=== PATIENT | male | born 1935 | race Caucasian/White ===

== ENCOUNTER → 2016-10-10 10:41 | Outpatient (CLI) | payer MEDICARE, BC ==
[2016-07-31 08:36] VITALS: BMI 26.9
[~2016-10-10 10:41] MED LIST: ATIVAN1 MG PO; BAYER CHEWABLE81 MG PO; CELEXA40 MG PO; CENTRUM SILVER1 TA2 PO; COREG 3.1253.125 MG PO; CRANBERRY TABLET PO; FISH OIL 1,2001 CA1 PO; GLUCOSAMINE HC500 MG PO; HYDROCODON-ACE1 EAC7 PO; HYDROCODONE-APA1 TAB PO; NAPROSYN500 MG PO; NORCO 10/325 TA1 TA1 PO; OMEPRAZOLE20 M1 PO; PLAVIX75 MG PO; PREDNISONE20 MG PO; PROBIOTIC1 EAC1 PO; ZANTAC150 MG PO
== END | disposition home or self-care (01) ==
LOC: D.MRI 10:41
DX: M25.561 Pain in right knee (principal)

== ENCOUNTER → 2017-04-29 10:26 | Outpatient (CLI) | payer MEDICARE, BC ==
[2016-07-31 08:36] VITALS: BMI 26.9
== END | disposition home or self-care (01) ==
LOC: D.MRI 10:26
DX: M54.5 Low back pain (principal)

== ENCOUNTER → 2017-08-31 05:17 | Day surgery (SDC) | payer MEDICARE, BC ==
[2017-08-28 11:13] LABS: BASOPHILS 0.2 % (0-2); EOSINOPHILS 0.8 % (0-7); HEMATOCRIT 42.9 % (42.0-54.0); HEMOGLOBIN 14.4 g/dL (13.5-17.5); IMMATURE GRANULOCYTES 0.3 % (0-5); LYMPHOCYTES 24.7 % (15-50); MCH 32.5 pg (26.0-34.0); MCHC 33.6 g/dL (31.0-37.0); MCV 96.8 fL (80.0-100.0); MEAN PLATELET VOLUME 10.5 fL (7.4-10.4); MONOCYTES 10.7 % (2-11); NEUTROPHILS 63.3 % (40-80); PLATELET COUNT 184 10x3/uL (130-400); RBC 4.43 10x6/uL (4.20-6.10); WBC 9.7 10x3/uL (4.8-10.8)
[2017-08-28 11:18] LABS: APTT 29.1 SECONDS (22.8-39.4); INR 1.01 (0.85-1.17); PROTIME 12.9 SECONDS (11.6-15.0)
[2017-08-28 11:23] LABS: ANION GAP 11.3 mmol/L (8-16); CALCIUM 9.4 mg/dL (8.5-10.1); CARBON DIOXIDE 28.4 mmol/L (21.0-32.0); CREATININE - SERUM 1.3 mg/dL (0.6-1.3); POTASSIUM - SERUM 4.7 mmol/L (3.5-5.1)
[~2017-08-31] VITALS: Ht 188 cm; Wt 95.3 kg
--- NOTE | ~2017-08-31 | OP ---
PATIENT NAME: SHERWIN PETERSON MEDICAL RECORD: [id number] :37 [facility] DATE: SURGEON: SHERWIN AGUILERA MD DATE OF OPERATION: 08/31/2017 SURGEON: Sherwin Aguilera MD PREOPERATIVE DIAGNOSIS: Left neck mass. POSTOPERATIVE DIAGNOSIS: Left neck mass. PROCEDURE PERFORMED: Excisional biopsy of left neck mass 3 x 3 x 3 cm. ANESTHESIA: General. COMPLICATIONS: None. 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 COMPLICATIONS: None. ESTIMATED BLOOD LOSS: Minimal. OPERATIVE COURSE: After consent was obtained, the patient was taken to the operating room and placed in supine position on the operating table. Next, general anesthesia was given via endotracheal intubation after a timeout was performed that confirmed the correct patient and procedure. The neck was prepped and draped in typical sterile fashion. Local anesthetic was injected. Skin incision made with a 15 blade scalpel. Self-retaining retractor was placed. Dissection continued through the subcutaneous tissue with electrocautery. The lipoma was grasped with a DeBakey, was circumferentially dissected with blunt right angle dissection. The mass once completely circumscribed was excised with electrocautery and sent for permanent pathology. The wound bed was irrigated and suctioned. Careful attention to hemostasis, which was obtained with electrocautery. The incision was closed with 3-0 Vicryl suture, Mastisol and Steri-Strips. At the end of the case, all needle and instrument counts were correct. No complications occurred. The patient was extubated and transferred to the PACU in stable condition. TRANSINT:[id number] Voice Confirmation ID: [id number] DOCUMENT ID: [id number] SHERWIN AGUILERA MD at 2109 CC: [id number] DICTATION DATE: 08/31/17 1035 DESIGN ENGINEER PRODUCTS: 08/31/17 1206 [id number] [place] [address]
[2017-08-31 07:46] VITALS: BP 132/67; Ht 188 cm; Wt 95.3 kg
== END | disposition home or self-care (01) ==
LOC: D.OPS 05:17 → D.PAN 09:00 → D.OPS 09:30
PROVIDERS: Anesthesiology
DX: D17.0 Benign lipomatous neoplasm of skin and subcutaneous tissue of head, face and neck (principal); Z01.812 Encounter for preprocedural laboratory examination

== ENCOUNTER → 2017-12-10 10:53 | Outpatient (CLI) | payer MEDICARE, BC ==
[2017-08-31 07:46] VITALS: BMI 27.0
== END | disposition home or self-care (01) ==
LOC: D.NM 10:53
DX: R93.8 Abnormal findings on diagnostic imaging of other specified body structures (principal)

== ENCOUNTER → 2018-04-13 14:58 | Outpatient (CLI) | payer MEDICARE, BC ==
[2017-08-31 07:46] VITALS: BMI 27.0
== END | disposition home or self-care (01) ==
LOC: D.CT 14:58
DX: K40.90 Unilateral inguinal hernia, without obstruction or gangrene, not specified as recurrent (principal)

== ENCOUNTER → 2018-04-30 21:18 | Outpatient (CLI) | payer MEDICARE, BC ==
[2017-08-31 07:46] VITALS: BMI 27.0
== END | disposition home or self-care (01) ==
LOC: D.MAMMO 09:00
DX: R92.8 Other abnormal and inconclusive findings on diagnostic imaging of breast (principal)

== ENCOUNTER 2018-06-02 07:27 | Day surgery (SDC) | payer MEDICARE, BC ==
[2018-06-01 09:35] LABS: BASOPHILS 0.1 % (0-2); EOSINOPHILS 1.3 % (0-7); HEMATOCRIT 39.6 % (42.0-54.0); LYMPHOCYTES 28.8 % (15-50); MCH 31.2 pg (26.0-34.0); MCHC 32.8 g/dL (31.0-37.0); MEAN PLATELET VOLUME 10.1 fL (7.4-10.4); MONOCYTES 11.3 % (2-11); NEUTROPHILS 58.5 % (40-80); PLATELET COUNT 158 10x3/uL (130-400); RBC 4.17 10x6/uL (4.20-6.10); RDW 14.7 % (11.5-14.5)
[2018-06-01 09:46] LABS: INR 1.05 (0.85-1.17); PROTIME 13.3 SECONDS (11.6-15.0)
[2018-06-01 09:47] LABS: ANION GAP 9.3 mmol/L (8-16); CALCIUM 8.6 mg/dL (8.5-10.1); CARBON DIOXIDE 28.4 mmol/L (21.0-32.0); CREATININE - SERUM 1.3 mg/dL (0.6-1.3); POTASSIUM - SERUM 4.7 mmol/L (3.5-5.1)
[~2018-06-02] VITALS: Ht 188 cm; Wt 91.6 kg
[~2018-06-02 07:27] MED LIST changes: +CLARITIN 10 MG10 MG PO; +PROBIOTIC BLEN1 EACH; +SINGULAIR10 MG PO; +VITAMIN E100 UNIT PO
[2018-06-02 07:50] VITALS: BP 150/69; Ht 188 cm; Wt 91.6 kg
[2018-06-02] MEDS ORDERED: FLOMAX0.4 MG PO (11:09)
[2018-06-02] MEDS ORDERED: HYDROCODON-ACE1 EAC7 PO (11:09)
[2018-06-02] MEDS ORDERED: FUROSEMIDE20 MG PO (11:10)
== END 2018-06-02 14:15 | disposition home or self-care (01) ==
LOC: D.OPS 07:27 → D.PAN 07:30 → D.OPS 09:30 → D.PAN 09:30 → D.OPS 14:15
PROVIDERS: Anesthesiology
DX: K40.90 Unilateral inguinal hernia, without obstruction or gangrene, not specified as recurrent (principal); Z01.812 Encounter for preprocedural laboratory examination

== ENCOUNTER → 2019-05-10 08:19 | Outpatient (CLI) | payer MEDICARE, BC ==
[2018-06-02 07:50] VITALS: BMI 26.0
[~2019-05-10 08:19] MED LIST changes: +FLOMAX0.4 MG PO; +FUROSEMIDE20 MG PO
--- NOTE | 2019-05-17 13:38 | EC ---
PATIENT:SHERWIN PETERSON DATE OF SERVICE: 05/10/19 SEX: M MEDICAL RECORD: [id number] DATE OF : 37 [facility]GE [facility] PATIENT: 83 ADMISSION DATE: 05/10/19 REFERRING PHYSICIAN: INTERPRETING PHYSICIAN: MASON HURTADO MD ECHOCARDIOGRAM REPORT ECHO CHARGES 4 ECHO COMPLETE Date: 05/10/19 CLINICAL DIAGNOSIS: MR H/O CAD/PVD ECHOCARDIOGRAPHIC MEASUREMENTS (adult normal given) AC root (d.<3.7cm) 3.2 cm LV Septum d (<1.2 cm> 1.4 cm Valve Excursion 2.0 cm LV Septum (systole) 2.0 cm Left Atria (s.<4.0cm> 5.2 cm LVPW d(<1.2cm) 1.2 cm RV (d.<2.3cm) 3.1 cm LVPW (sytole) 1.8 cm LV diastole(<5.6CM) 6.9 cm MV E-F(>70mm/sec) cm LV systole 5.0 cm LVOT Diameter 2.0 cm MV exc.(>10mm) cm Est.ejection fraction (50-75%) % DOPPLER: LVIT cm/sec A 51.0 cm/sec E 124 cm/sec LA cm/sec RVSP 45.0 mmHg LVOT 94.0 cm/sec AOP1/2T m/s Asc. Ao 181 cm/sec RVOT 37.0 cm/sec RA cm/sec PA 74.0 cm/sec AV Gradient Peak 13.2 mmHg AV Mean 7.3 mmHg AV Area 1.5 cm MV Gradient Peak 7.2 mmHg MV Mean 2.8 mmHg MV Area cm COMMENTS: OP - HC Podiatrist Assistant: 1 JOHANN WILEY Civil Engineering Drafter: 1 Dr. Hurtado TAPE# PACS Pericardial Effusion N DATE OF SERVICE: FINDINGS: 1. Left ventricular chamber size is moderately dilated. Left ventricular systolic function is preserved at 50%. 2. Left atrium is dilated at 5.2 cm. Right atrium and right ventricular chamber sizes are as well dilated giving 4-chamber dilatation. 3. Valvular structures have normal structure and motion. 4. Doppler interrogation reveals mild aortic insufficiency, moderate mitral regurgitation, mild tricuspid regurgitation, no other valvular insufficiency or ECHOCARDIOGRAM REPORT [id number] SHERWIN PETERSON stenosis. Pulmonary systolic pressure is estimated at 45 mmHg. 5. No evidence of pericardial effusion or left ventricular thrombus. TRANSINT:[id number] Voice Confirmation ID: [id number] DOCUMENT ID: [id number] MASON HURTADO MD at 1338 CC: [id number] DICTATION DATE: 05/10/19 1736 BOX TRUCK DRIVER: 05/10/19 2104 DEP CLI 05/10/19 [place] [id number] [place] [id number]
== END | disposition home or self-care (01) ==
LOC: D.HCCECHO 08:19 → D.HCCARDIO 09:00 → D.HCCECHO 09:00
PROVIDERS: ATTEND Internal Medicine Interventional Cardiology
DX: I34.0 Nonrheumatic mitral (valve) insufficiency (principal)

== ENCOUNTER 2019-10-16 09:31 | Emergency (ER) | payer MEDICARE, BC ==
[~2019-10-16] VITALS: Ht 188 cm; Wt 97.7 kg
--- NOTE | ~2019-10-16 | EC ---
PATIENT:SHERWIN PETERSON DATE OF SERVICE: 10/16/19 SEX: M MEDICAL RECORD: [id number] DATE OF : 37 LOCATION:[facility] AGE OF PATIENT: 83 ADMISSION DATE: 10/16/19 REFERRING PHYSICIAN: INTERPRETING PHYSICIAN: MASON HURTADO MD ECHOCARDIOGRAM REPORT ECHO CHARGES 4 ECHO COMPLETE Date: 10/16/19 CLINICAL DIAGNOSIS: CP/SOB ECHOCARDIOGRAPHIC MEASUREMENTS (adult normal given) AC root (d.<3.7cm) 3.5 cm LV Septum d (<1.2 cm> 1.6 cm Valve Excursion 1.8 cm LV Septum (systole) 2.1 cm Left Atria (s.<4.0cm> 4.5 cm LVPW d(<1.2cm) 1.4 cm RV (d.<2.3cm) 3.3 cm LVPW (sytole) 2.1 cm LV diastole(<5.6CM) 6.5 cm MV E-F(>70mm/sec) cm LV systole 4.7 cm LVOT Diameter 2.1 cm MV exc.(>10mm) cm Est.ejection fraction (50-75%) % DOPPLER: LVIT cm/sec A cm/sec E 147 cm/sec LA cm/sec RVSP 46.0 mmHg LVOT 67.0 cm/sec AOP1/2T m/s Asc. Ao 114 cm/sec RVOT 52.0 cm/sec RA cm/sec PA 83.0 cm/sec AV Gradient Peak 5.2 mmHg AV Mean 2.8 mmHg AV Area 2.5 cm MV Gradient Peak 9.1 mmHg MV Mean 3.2 mmHg MV Area cm COMMENTS: Small Engine Technician: 1 JOHANN FACKLER Tool Polishing Machine Operator: 1 Dr. Hurtado TAPE# PACS Pericardial Effusion N DATE OF SERVICE: 10/16/2019 FINDINGS: 1. Left ventricular chamber size is mildly dilated. Left ventricular systolic function is preserved at 50% to 55%. 2. Left atrium is enlarged at 4.5 cm. Right atrium and right ventricular chamber sizes are as well mildly dilated. 3. Valvular structures have normal structure and motion. 4. Doppler interrogation reveals moderate mitral regurgitation, no other valvular insufficiency or stenosis. Pulmonary systolic pressure estimated at 46 ECHOCARDIOGRAM REPORT [id number] SHERWIN PETERSON mmHg. 5. No evidence of pericardial effusion or left ventricular thrombus. TRANSINT:[id number] Voice Confirmation ID: [id number] DOCUMENT ID: [id number] MASON HURTADO MD CC: [id number] DICTATION DATE: 10/17/19 1341 EDGE GRINDER: 10/17/19 1423 DEP ER 10/16/19 [place] [id number] [place] [id number]
[2019-10-16 10:52] LABS: BASOPHILS 0.1 % (0-2); EOSINOPHILS 0.5 % (0-7); HEMATOCRIT 38.2 % (42.0-54.0); HEMOGLOBIN 12.4 g/dL (13.5-17.5); IMMATURE GRANULOCYTES 0.3 % (0-5); LYMPHOCYTES 19.4 % (15-50); MCH 31.1 pg (26.0-34.0); MCHC 32.5 g/dL (31.0-37.0); MCV 95.7 fL (80.0-100.0); MEAN PLATELET VOLUME 9.4 fL (7.4-10.4); MONOCYTES 13.3 % (2-11); NEUTROPHILS 66.4 % (40-80); RBC 3.99 10x6/uL (4.20-6.10); RDW 14.6 % (11.5-14.5); WBC 11.8 10x3/uL (4.8-10.8)
[2019-10-16 10:59] LABS: PLATELET COUNT 235 10x3/uL (130-400)
[2019-10-16 11:03] LABS: ANION GAP 8.5 mmol/L (8-16); CALCIUM 8.8 mg/dL (8.5-10.1); CARBON DIOXIDE 30.6 mmol/L (21.0-32.0); CREATININE - SERUM 1.2 mg/dL (0.6-1.3); POTASSIUM - SERUM 4.1 mmol/L (3.5-5.1)
[2019-10-16 11:15] LABS: ALBUMIN 2.9 g/dL (3.4-5.0); BILIRUBIN - TOTAL 0.51 mg/dL (0.2-1.3); PROTEIN - SERUM 7.4 g/dL (6.4-8.2)
[2019-10-16] MEDS ORDERED: KLOR-CON 1010 MEQ PO (11:48)
[2019-10-16] MEDS ORDERED: LASIX20 MG PO (12:03)
[2019-10-16] MEDS ORDERED: FLUTICASONE PRO16 GM NASAL (12:03)
[2019-10-16 12:16] VITALS: Ht 188 cm; Wt 97.7 kg
[2019-10-16 14:04] VITALS: BP 157/81
--- NOTE | 2019-10-17 11:54 | CN ---
PATIENT NAME:SHERWIN PETERSON MEDICAL RECORD: [id number] : 37 LOCATION:ER ADMIT DATE: ACCOUNT: [id number] CONSULTING PHYSICIAN: MASON RONDON MD REFERRING PHYSICIAN: VIN MA MD DATE OF CONSULTATION: 10/16/2019 CARDIOLOGY CONSULTATION DIAGNOSES: 1. Chest pain. 2. Shortness of breath. 3. Pulmonary edema. 4. Coronary artery disease. 5. Previous percutaneous transluminal coronary angioplasty stent. HISTORY OF PRESENT ILLNESS: This is a gentleman who presents with shortness of breath and chest discomfort. His chest x-ray is compatible with mild pulmonary edema. He was previously on Lasix in the past, however, has not been on Lasix for quite some time. As well, he has been having a chest pain under his left breast area. His EKG is with no changes. Troponin is normal. PHYSICAL EXAMINATION: CONSTITUTIONAL/GENERAL APPEARANCE: Well nourished, well developed, appears stated age. EYES: Lids and conjunctivae noninjected. No discharge. No pallor. ENT: Lips within normal limit. No cyanosis. No pallor. NECK: Carotid arteries, bilateral normal upstroke. No bruits. No thrills. No jugular venous pressure or distention. CERVICAL LYMPH NODES: Nontender. Nonenlarged. THYROID: Not enlarged. No nodules. CARDIOVASCULAR: Precordial exam, nondisplaced. No heaves or pericardial thrills. Rate and rhythm, regular. Heart sounds, normal S1, normal S2. No S3, no gallop, no rub. Systolic murmur, not heard. Diastolic murmur, not heard. RESPIRATORY: Respiratory effort, unlabored. Normal curvature. No thoracic deformity. No chest wall tenderness. Percussion, resonant. Auscultation, clear. No wheezes, no rales, no rhonchi. ABDOMEN: Soft, nondistended, nontender. No abdominal pain, no vomiting and normal appetite. MUSCULOSKELETAL: No joint tenderness, normal gait, normal tone. SKIN: Warm and dry. OVERALL IMPRESSION: Shortness of breath. He is being treated with reinstitution of his Lasix, which is good. We will get an echocardiogram before he leaves to get a current ejection fraction, previous ejection fraction was in the 50% range. Due to the chest pain, we will risk stratify with stress testing Cardiolite imaging as an outpatient. TRANSINT:[id number] Voice Confirmation ID: [id number] DOCUMENT ID: [id number] CONSULT REPORT [id number] SHERWIN PETERSON, MASON MENESES at 1154 CC: [id number] DICTATION DATE: 10/16/19 1218 SHIPFITTER APPRENTICE: 10/16/19 1610 DEP ER 10/16/19 [place] [id number] [place] [id number]
== END 2019-10-16 14:05 | disposition home or self-care (01) ==
LOC: D.ER 09:31
PROVIDERS: Family Medicine
DX: R09.81 Nasal congestion (principal); I50.9 Heart failure, unspecified; R05 Cough; Z86.73 Personal history of transient ischemic attack (TIA), and cerebral infarction without residual deficits; K21.9 Gastro-esophageal reflux disease without esophagitis

== ENCOUNTER → 2019-10-21 07:52 | Outpatient (CLI) | payer MEDICARE, BC ==
[2019-10-16 12:16] VITALS: BMI 27.6
--- NOTE | ~2019-10-21 | ST ---
PATIENT:SHERWIN PETERSON MEDICAL RECORD: [id number] SEX: M LOCATION:[facility] ORDER #: ADMISSION DATE: 10/21/19 AGE OF PATIENT: 83 REFERRING PHYSICIAN: INTERPRETING PHYSICIAN: MASON RONDON MD DATE OF SERVICE: 10/21/2019 INDICATION: Angina and coronary artery disease. PROCEDURE IN DETAIL: The patient was exercised on standard Lexiscan protocol with 33 mCi of sestamibi injected at peak stress, 11 mCi used previously for rest images. FINDINGS: Gated SPECT was not performed secondary to multiple premature beats. SPECT imaging Cardiolite was used as myocardial perfusion agent. There is a fixed perfusion defect inferiorly compatible with previous inferior myocardial infarction; however, there is reversibility anteriorly as well as laterally. This includes the basal, mid, apical anterior segments, apical lateral, mid lateral, basal lateral segments. The degree of reversibility is moderate. The amount of myocardial involved between the 2 defects is very large. OVERALL IMPRESSION: This is a high risk abnormal nuclear stress test. Reversible ischemia anteriorly and laterally with a fixed perfusion defect inferiorly compatible with multivessel hemodynamically significant coronary artery disease. TRANSINT:[id number] Voice Confirmation ID: [id number] DOCUMENT ID: [id number] MASON RONDON MD CC: STANLEY MALDONADO [id number] DICTATION DATE: 10/21/19 1437 PRODUCTION SUPERINTENDENT: 10/22/19 0754 [facility] CLI 10/21/19 [place] [id number] [place] [address]
[~2019-10-21 07:52] MED LIST changes: +FLUTICASONE PRO16 GM NASAL; +KLOR-CON 1010 MEQ PO; +LASIX20 MG PO
== END | disposition home or self-care (01) ==
LOC: D.HCCARDIO 07:52
PROVIDERS: ATTEND Internal Medicine Interventional Cardiology
DX: I25.10 Atherosclerotic heart disease of native coronary artery without angina pectoris (principal)

== ENCOUNTER 2019-10-28 09:54 | Outpatient (CLI) | payer MEDICARE, BC ==
[~2019-10-28] VITALS: Ht 188 cm; Wt 96.4 kg
--- NOTE | ~2019-10-28 | HEMODYNAMI ---
PATIENT:SHERWIN PETERSON MEDICAL RECORD: [id number] : 37 LOCATION:[facility] ADMISSION DATE: 10/28/19 Generatedon:10/28/201914:55 Patient name: SHERWIN PETERSON Patient #: [id number] SSN: [id number] : 1935 Date of study: 10/28/2019 Page: Of Hemodynamic Procedure Report Patient Data Patient Demographics Procedure consent was obtained First Name: SHERWIN Gender: Male Last Name: KRISTEN : 1935 [facility] Initial: H Age: 83 year(s) Patient #: [id number] Race: SSN: [id number] Additional ID: [id number] Contact details [address]: [address] [place] [address] [place] State: [place] City: [place] Zip code: [address] Admission Admission Data Admission Date: 10/28/2019 Admission Time: 9:54 Arrival Date: 10/28/2019 Arrival Time: 12:00 Admit Source: Other Insurance Payor: Medicare [facility] #: [id number] Height (in.): 73.62 BSA: 2.22 (m2) Height (cm.): 187 BMI: 27.45 (kg/m2) Weight (lbs.): 211.64 Weight (kg.): 96 Lab Results Lab Result Date: 10/28/2019 Lab Result Time: 0:00 Biochemistry Name Units Result Min Max BUN mg/dl 17 --(---*)-- 7 18 Creatinine mg/dl 1.2 --(---*)-- 0.6 1.3 eGFR ml/min 61.85146 *-(----)-- 90 120 NONAFRICAN CBC Name Units Result Min Max Hemoglobin g/dl 13.7 --(*---)-- 13.5 17.5 Procedure Procedure Types Cath Procedure Diagnostic Procedure C [facility] w/Coronaries Sedation Charges Moderate Sedation up to 30 minutes PCI Procedure Coronary Stent Coronary Stent Initial x2 Hemochron ACT Test Procedure Description Procedure Date Procedure Date: 10/28/2019 Procedure Start Time: 14:20 Procedure End Time: 14:47 Procedure Staff Name Function Mango Hurtado MD Performing Physician Susy Brandt RT Monitor Gaetano James RT Scrub Mariann Donald RN Nurse Procedure Data Cath Procedure Fluoroscopy Diagnostic fluoroscopy Total fluoroscopy Time: 4.5 time: 4.5 min min Diagnostic fluoroscopy Total fluoroscopy dose: dose: 1045 mGy 1045 mGy Contrast Material Contrast Material Type Amount (ml) Isovue 300 112 Entry Location Entry Primary Successful Side Size Upsize Upsize Entry Closure Stein ccessful Closure Location (Fr) 1 (Fr) 2 (Fr) Remarks Device Remarks Radial Right 6 Fr Mechanical artery Short Compression Estimated blood loss: 5 ml Diagnostic catheters Device Type Used For End Catheter Placement DIAGNOSTIC [place] 110cm 5 Multi-vessel Fr catheter ([id number]) Angiography Procedure Complications No complications Procedure Medications Medication Administration Route Dosage Oxygen etCO2 Nasal cannula 2 l/min Heparin Flush Bag added to field 2 bags (1000units/500ml NS) Lidocaine 2% added to field 20 0.9% NaCl I.V. 100 ml/hr Radial Cocktail added to field 1 syringe (Verapamil 2mg/Nitro 400mcg/Heparin 1500units) Fentanyl I.V. 50 mcg Versed I.V. 1 mg Fentanyl I.V. 50 mcg Versed I.V. 1 mg Versed I.V. 1 mg Heparin Bolus I.V. 4000 units Integrilin (Bolus I.V. 8.5 ml 2mg/ml) Versed I.V. 0.5 mg Versed I.V. 0.5 mg Plavix P.O. 600 mg Hemodynamics Rest BSA: 2.22 (m2) HGB: 13.7 (g/dl) O2 Consumption: Estimated: 255.96 (ml/min) O2 Co nsumption indexed: Estimated:115.3 (ml/min/m) Heart Rate: 74 (bpm) Snapshots Pre Cath Intra NCS Post Cath Vital Signs Time Heart Resp SPO2 etCO2 NIBP (mmHg) Rhythm Pain Sedation Rate (ipm) (%) (mmHg) Status Level (bpm) 14:07:49 72 20 96 0 141/81(119) NSR 0 (11) 10(A) , No pain 14:12:09 72 11 97 33.5 132/75(103) NSR 0 (11) 10(A) , No pain 14:16:23 71 15 95 0 119/67(91) NSR 0 (11) 10(A) , No pain 14:20:31 74 14 97 34.2 112/69(91) NSR 0 (11) 10(A) , No pain 14:24:39 79 17 91 34.2 104/61(82) NSR 0 (11) 10(A) , No pain 14:28:44 78 17 93 15.2 108/58(81) NSR 0 (11) 10(A) , No pain 14:32:50 81 18 94 31.9 112/62(91) NSR 0 (11) 10(A) , No pain 14:36:56 84 17 93 32.7 120/69(103) NSR 0 (11) 10(A) , No pain 14:41:04 78 17 30.4 132/71(105) NSR 0 (11) 10(A) , No pain 14:45:15 83 19 33.4 131/71(108) NSR 0 (11) 10(A) , No pain Medications Time Medication Route Dose Verified Delivered Reason Not es Effectiveness by by 14:07:06 Oxygen etCO2 2 l/min Mariann Mariann for low 02 sats Nasal Donald Donald cannula RN RN 14:07:15 Heparin Flush added 2 bags Mariann Mariann used for Bag to Donald Donald procedure (1000units/500ml RN RN NS) 14:07:24 Lidocaine 2% added 20ml Mariann Mango for local to vial Shabana Hurtado MD anesthetic field ESTEVES 14:07:34 0.9% NaCl I.V. 100 Marainn Mariann Per physician ml/hr Shabana Donald RN RN 14:07:41 Radial Cocktail added 1 Mariann Mariann used for (Verapamil to syringe Donald Donald procedure 2mg/Nitro RN RN 400mcg/Heparin 1500units) 14:16:31 Fentanyl I.V. 50 mcg Mariann Mariann for sedation Donaldfroylan Donald RN RN 14:16:37 Versed I.V. 1 mg Mariann Mariann for sedation Donaldfroylan Donald RN RN 14:20:05 Fentanyl I.V. 50 mcg Mariann Mariann for sedation Shabana Donald RN RN 14:20:09 Versed I.V. 1 mg Mariann Mariann for sedation Shabana Donald RN RN 14:23:37 Versed I.V. 1 mg Mariann Mariann for sedation Shabana Donald RN RN 14:27:19 Heparin Bolus I.V. 4000 Mariann Mariann for alivia ified units Donald Donald anticoagulation w RN RN angela,rn 14:28:25 Integrilin I.V. 8.5 ml Mariann Mariann for 1.5 ml (Bolus 2mg/ml) Donald Donald anticoagulation wasted RN RN 14:28:42 Versed I.V. 0.5 mg Mariann Mariann for sedation Donald Shabana RN RN 14:32:41 Versed I.V. 0.5 mg Mariann Mariann for sedation Shabana Donald RN RN 14:35:30 Plavix P.O. 600 mg Mariann Mariann for Donald Donald antiplatelet RN RN therapy Procedure Log Time Note 13:48:24 Gaetano CONLYE(R) (CV) sent for patient. Start room use. 13:52:16 Informed consent obtained and on chart 13:56:31 Admit Source: Other 13:56:35 Arrival Date: 10/28/2019 12:00:00 PM 13:56:58 Insurance Payor : Medicare 13:57:07 Patient Height : 73.62 inches 13:57:10 Patient Weight : 211.64 lbs 13:57:52 Lab Result : BUN 17 mg/dl 13:57:52 Lab Result : Creatinine 1.2 mg/dl 13:57:52 Lab Result : eGFR NONAFRICAN 61.78846 ml/min 13:57:52 Lab Result : Hemoglobin 13.7 g/dl 13:57:56 Diagnostic Cath Status : Elective 13:58:22 Procedure Status Elective Heart Cath (OP). 13:58:26 Time tracking: Regular hours (M-F 7:00 - 5:00) 13:58:30 Plan of Care:Hemodynamics will remain stable., Cardiac rhythm will remain stable., Comfort level will be maintained., Respiratory function will remain adequate., Patient/ family verbilizes understanding of procedure., Procedure tolerated without complication., Recovers from procedure without complications.. 13:58:47 Patient received from Pre/Post Procedure Room to [facility] 2 Alert and oriented. Tansferred to table in Supine position. 13:58:48 Warm blankets applied, and pawan hugger turned on for patient comfort. 13:58:48 Correct patient and procedure confirmed by team. 13:58:49 ECG and BP/O2 sat monitors applied to patient. 14:06:37 Baseline sample Acquired. 14:06:37 Vital chart was started 14:06:40 Rhythm: sinus rhythm 14:06:42 Full Disclosure recording started 14:06:46 H&P Date Dictated: 10/28/2019 Within 30 days and on chart., H&P Addendum completed by physician on day of procedure. (MUST COMPLETE FOR ALL OUTPATIENTS). 14:06:47 Pre-procedure instructions explained to patient. 14:06:47 Pre-op teaching completed and patient verbalized understanding. 14:06:49 Family in patients room. 14:06:50 Patient NPO since Midnight. 14:06:58 Is the patient allergic to Iodine/contrast media? No. 14:07:03 Was the patient premedicated? Yes 14:07:04 Is patient on blood thinner?No 14:07:05 Patient diabetic? No. 14:07:06 Oxygen 2 l/min etCO2 Nasal cannula was administered by Mariann Donald RN; for low 02 sats; Verbal order read back and verified. 14:07:07 Previous problem with sedation/anesthesia? No ? 14:07:09 Snore? No 14:07:10 Sleep apnea? No 14:07:11 Deviated septum? No 14:07:12 Opens mouth fully? Yes 14:07:12 Sticks out tongue? Yes 14:07:15 Heparin Flush Bag (1000units/500ml NS) 2 bags added to field was administered by Mariann Donald RN; used for procedure; Verbal order read back and verified. 14:07:15 Airway obstruction? Yes COPD 14:07:18 Dentures? No ? 14:07:21 Pre procedure: right dorsailis pedis pulse 2+ Normal; easily identifiable; not easily obliterated 14:07:23 Pre procedure: left dorsailis pedis pulse 2+ Normal; easily identifiable; not easily obliterated 14:07:24 Lidocaine 2% 20ml vial added to field was administered by Mango Hurtado MD; for local anesthetic; Verbal order read back and verified. 14:07:25 Patient pain scale 0/10 ?. 14:07:30 IV patent on arrival in left forearm with 0.9% NaCl at [facility]. 14:07:33 Lab results completed and on chart. 14:07:34 0.9% NaCl 100 ml/hr I.V. was administered by Mariann Donald RN; Per physician; Verbal order read back and verified. 14:07:41 Radial Cocktail (Verapamil 2mg/Nitro 400mcg/Heparin 1500units) 1 syringe added to field was administered by Mariann Donald RN; used for procedure; Verbal order read back and verified. 14:07:47 Stress Test: yes; abnormal ? 14:12:24 Risk of Mortality: 0.1 14:12:31 Risk of blood transfusion: 0.45 14:12:40 Risk of SIMONA: 1.5 14:12:45 Right Radial & Right Groin area was prepped with chlora-prep and draped in sterile fashion 14:12:46 Alarms reviewed by R. N. 14:12:46 Sharps counted by scrub and verified by R.N. 14:12:47 Physician arrived 14:12:48 --------ALL STOP TIME OUT------ 14:12:48 Final Timeout: patient, procedure, and site verified with staff and physician. All members of the team are in agreement. 14:12:50 Right Radial & Right Groin site verified by team. 14:12:54 Fire Safety Assessment: A--An alcohol-based skin anteseptic being used preoperatively., C--Open oxygen or nitrous oxide is being used., D--An ESU, laser, or fiber-optic light is being used. 14:12:57 Physical assessment completed. ASA score P 2 - A patient with mild systemic disease as per Mango Hurtado MD. 14:13:03 2) 60-89 Mildly reduced kidney function, and other findings (as for stage 1) point to kidney disease. 14:13:40 Maximum allowable contrast dose (3.7 X eGFR X 0.75)169 ml. 14:13:44 Sedation plan: IV Moderate Sedation Medication:Versed, Fentanyl 14:13:48 Use device set Radial Dx or PCI 14:13:49 ACIST Syringe (21048) opened to sterile field. 14:13:49 Medline Cath Pack ([id number]) opened to sterile field. 14:13:50 Bag Decanter () opened to sterile field. 14:13:50 ACIST Hand Control (42553) opened to sterile field. 14:13:50 ACIST Manifold (36040) opened to sterile field. 14:13:51 Tegaderm 4 x 4 (1626W) opened to sterile field. 14:13:54 SHEATH 6FR RAIN (4699333) opened to sterile field. 14:13:55 EMERALD Guide Wire (896-459) opened to sterile field. 14:14:01 Procedure started. 14:16:31 Fentanyl 50 mcg I.V. was administered by Mariann Donald RN; for sedation; Verbal order read back and verified. 14:16:37 Versed 1 mg I.V. was administered by Mariann Donald RN; for sedation; Verbal order read back and verified. 14:19:17 Zero performed for pressure channel P1 14:20:05 Fentanyl 50 mcg I.V. was administered by Mariann Donald RN; for sedation; Verbal order read back and verified. 14:20:09 Versed 1 mg I.V. was administered by Mariann Donald RN; for sedation; Verbal order read back and verified. 14:20:20 Local anesthetic to right radial artery with Lidocaine 2% by Mango Hurtado MD.INITIAL ACCESS ONLY 14:20:29 A 6 Fr Short sheath was inserted into the Right Radial artery 14:22:13 A DIAGNOSTIC [place] 110cm 5 Fr catheter ([id number]) was advanced over the wire and used for Multi-vessel Angiography. 14:23:17 LV hemodynamics recorded. 14:23:18 LV gram done using HOLDER 14:23:21 Injector settings: Ml/sec: 5, Volume: 15, 14:23:27 EF : 55 % 14:23:37 Versed 1 mg I.V. was administered by Mariann Donald RN; for sedation; Verbal order read back and verified. 14:23:39 LCA angiography performed. 14:23:41 Injector settings: Ml/sec: 3, Volume: 6, 14:24:22 RCA angiography performed. 14:24:27 Injector settings: Ml/sec: 3, Volume: 6, 14:24:42 Catheter removed. 14:24:44 ACCDominant side:Right 14:26:09 Proceeding to intervention. 14:26:35 GUIDE 6FR XB 3.5 catheter ([id number]) opened to sterile field. 14:26:36 INFLATOR Merit BasixCompak (HY7431) opened to sterile field. 14:27:16 CHOICE PT Extra Support 182cm wire ([id number]) opened to sterile field. 14:27:19 Heparin Bolus 4000 units I.V. was administered by Mariann Donald RN; for anticoagulation; verified w paolo miller Verbal order read back and verified. 14::26 6 Fr XB 3.5 guide catheter was inserted over the wire 14::32 CHOICEPT wire advanced. 14:27:41 Wire advanced across lesion. 14:28:25 Integrilin (Bolus 2mg/ml) 8.5 ml I.V. was administered by Mariann Donald RN; for anticoagulation; 1.5ml wasted Verbal order read back and verified. 14:28:42 Versed 0.5 mg I.V. was administered by Mariann Donald RN; for sedation; Verbal order read back and verified. 14:29:07 Pre PCI Site: [place] mCirc has 80% stenosis. 14:29:07 ACC Pre-intervention RENALDO Flow is 3. 14:29:20 Place stent Inflation Number: 1 A SAGAR RX 3.0 x 38 stent ([id number]) was prepped and advanced across the Mid CX 80. The stent was deployed at 15 LEYDI for 0:10 (min:sec) 0. 14:29:29 Post PCI Site: [place] mCirc has 0% stenosis. 14:29:29 Wire redirected to LAD. 14:30:37 Stent catheter was removed intact over wire. 14:31:28 Pre PCI Site: [place] mLAD has 80% stenosis. 14:31:29 Place stent Inflation Number: 1 A SAGAR RX 2.5 x 18 stent ([id number]) was prepped and advanced across the Mid LAD 80. The stent was deployed at 17 LEYDI for 0:10 (min:sec) 0. 14:32:10 Post PCI Site: [place] mLAD has 0% stenosis. 14:32:10 Stent catheter was removed intact over wire. 14:32:41 Pre PCI Site: [place] pLAD has 80% stenosis. 14:32:41 Versed 0.5 mg I.V. was administered by Mariann Donald RN; for sedation; Verbal order read back and verified. 14:32:42 Place stent Inflation Number: 1 A SAGAR RX 3.5 x 15 stent ([id number]) was prepped and advanced across the Prox LAD 80. The stent was deployed at 17 LEY[place] for 0:10 (min:sec) 0. 14:33:10 Stent catheter was removed intact over wire. 14:34:17 Wire removed. 14:34:18 Guide catheter removed. 14:34:21 ACC Post-intervention RENALDO Flow is 3. 14:34:38 Post PCI Site: [place] pLAD has 0% stenosis. 14:35:24 Sheath removed intact; hemostasis achieved with Mechanical Compression to the Right Radial artery. 14:35:27 Procedure ended.(Physican Out) 14:35:30 Plavix 600 mg P.O. was administered by Mariann Donald RN; for antiplatelet therapy; Verbal order read back and verified. 14:39:40 ZEPHYR REGULAR TR BAND (418478) opened to sterile field. 14:44:48 ACC Post-intervention RENALDO Flow is 3. 14:45:05 Fluoroscopy time 04.50 minutes. 14:45:09 Fluoroscopy dose: 1045 mGy 14:45:09 Flurop Dose total: 1045 14:45:15 Dose Area Product 72736 mGy/cm. 14:45:23 Contrast amount:Isovue 300 112ml. 14:45:28 Maximum allowable dose exceeded? No. 14:45:29 Sharps counted by scrub and verified by R.N. 14:45:32 [place] band inflated with 12cc of air. 14:45:35 Insertion/operative site no bleeding no hematoma. 14:45:40 Post right radial artery:stable 14:45:42 Post Procedure Pulses reassessed and unchanged 14:45:47 Post procedure rhythm: unchanged. 14:45:49 Estimated blood loss: 5 ml 14:45:52 Post procedure instruction explained to patient.Patient verbalizes understanding. 14:45:52 Patient needs reinforcement of post procedure teaching. 14:46:38 Procedure type changed to Cath procedure, Diagnostic procedure, LHC, LHC w/Coronaries, Sedation Charges, Moderate Sedation up to 30 minutes, PCI procedure, Coronary Stent, Coronary Stent Initial x2, Hemochron ACT Test 14:46:39 Procedure and supply charges have been captured, reviewed, submitted and are correct. 14:46:43 Procedure Complication : No complications 14:46:46 Vital chart was stopped 14:46:52 [facility] Findings: MVD- PCI performed (see procedure note) 14:46:54 Operative report dictated upon procedure completion. 14:46:54 See physician's report for complete and final results. 14:46:58 Report given to Pre/Post Procedure Room. 14:47:02 Procedure ended. 14:47:02 Full Disclosure recording stopped 14:47:11 ACC-PCI Only Patient was given prescriptions, or instructed by Mango Hurtado MD to start/continue the following medications upon discharge: Plavix 14:47:55 End room use (Document Last) 14:52:41 ACT drawn and resulted at 224 seconds. (normal therapeutic range 180-240 seconds). Intervention Summary Intervention Notes Time ActionType Lesion and Equipment Used Action# Pressure Duration Attributes 14:29:20 Place stent Mid CX SAGAR RX 3.0 x 1 15 00:10 38 stent ([id number]) 14:31:29 Place stent Mid LAD SAGAR RX 2.5 x 1 17 00:10 18 stent ([id number]) 14:32:42 Place stent Prox LAD SAGAR RX 3.5 x 1 17 00:10 15 stent ([id number]) Device Usage Item Name Manufacture Quantity Catalog Number Hospital Part Current M inimal Lot# / Charge Number Stock Stock Serial# Code ACIST Syringe Acist 1 13255 791935 914749 939180 2 0 (86819) Medical Systems Inc Medline Cath Medline 1 [id number] 684770 95404 091719 5 Pack ([id number]) Bag Decanter Microtek 1 2001S 374699 16227 679082 5 (2001S) Medical Inc. ACIST Hand Acist 1 36887 660919 336854 832892 5 Control Medical (54901) Systems Inc ACIST Manifold Acist 1 22639 737151 871755 011441 5 (53453) Medical Systems Inc Tegaderm 4 x 4 3M 1 1626W 263976 965590 553573 5 (1626W) SHEATH 6FR Cardinal 1 4588997 450642 4898729 066506 5 RAIN (3328158) API Healthcare Guide Cardinal 1 502-455 553648 366522 301984 5 Wire (407-096) Health DIAGNOSTIC Terumo 1 40-0616 023418 998840 055593 5 [place] 110cm 5 Fr catheter (232423) GUIDE 6FR XB Cardinal 1 90815809 948814 838778 138932 2 3.5 catheter Health (61845921) INFLATOR Merit Merit 1 LW4829 675419 071530 772830 1 5 [facility] (IC5613) CHOICE PT Thayer 1 [id number] 863139 308742 972857 5 Extra Support Scientific 182cm wire ([id number]) SAGAR RX 3.0 x Medtronic 1 [id number] 639257 1178104 603544 5 [id number] 38 stent ([id number]) SAGAR RX 2.5 x Medtronic 1 [id number] 765001 0752029 650454 5 [id number] 18 stent ([id number]) SAGAR RX 3.5 x Medtronic 1 [id number] 499526 8112132 849723 5 [id number] 15 stent ([id number]) ZEPHYR REGULAR Cardinal 1 193548 020253 5676705 782509 5 [facility] (654468) Signature Audit [place] Stage Time Signature Unsigned Intra-Procedure 10/28/2019 Susy Brandt 2:49:00 PM RT(R) Intra-Procedure 10/28/2019 Mango Hurtado 2:55:39 PM Signatures Performing Physician : Signature : Mango Hurtado MD Date : Time : Monitor : Susy Brandt RT Signature : Date : Time : Nurse : Mariann Donald RN Signature : Date : Time : [place] [address] [place] [address]
--- NOTE | ~2019-10-28 | OP ---
PATIENT NAME: SHERWIN PETERSON MEDICAL RECORD: [id number] :37 LOCATION:D.M2 D.5 ADMISSION DATE: SURGEON: MASON RONDON MD DATE OF OPERATION: 10/28/2019 PROCEDURES: 1. PTCA stent LAD. 2. PTCA stent left circumflex. 3. Left heart catheterization. 4. Selective coronary angiography. 5. Left ventriculogram. INDICATION: Angina, coronary artery disease, and abnormal nuclear stress test. PROCEDURE IN DETAIL: After informed consent was obtained and after a detailed description of the risks, benefits as well as alternative therapies, the patient elected to proceed with angiogram and angioplasty. The right radial area was prepped and draped in normal sterile fashion. Right radial artery was cannulated via modified Seldinger technique with placement of 6-Turkish sheath. All catheters exchanged through this sheath. FINDINGS: Left ventriculogram was performed in standard 30-degree HOLDER view, reveals good cardiac wall motion, ejection fraction estimated at 55%. SELECTIVE CORONARY ANGIOGRAPHY: 1. Left main is with no significant angiographic disease. 2. Left anterior descending has 80% stenosis times 2. This correlates perfusion defect on nuclear stress testing. 3. Left circumflex has a long area of 70% to 80% stenosis. This correlates with perfusion defect on nuclear stress test. 4. Right coronary has moderate irregularities, but no flow-limiting stenosis. PTCA STENT OF THE LEFT CIRCUMFLEX: The stent used was a 3.0 x 38 mm [place]. Result was 0% residual stenosis. PTCA STENT OF THE LEFT ANTERIOR DESCENDING: The stent used 3.5 x 15 and 2.5 x 18, both [place] stents. Result was 0% residual stenosis. OVERALL IMPRESSION: Successful PTCA stent of the LAD and circumflex, both going from 75% to 80% initial stenosis to 0% residual. TRANSINT:[id number] Voice Confirmation ID: [id number] DOCUMENT ID: [id number] MASON RONDON MD CC: [id number] DICTATION DATE: 10/28/19 1440 SURGERY SPECIALIST: 10/28/192017 [facility] [address] [place] [place] [id number]
--- NOTE | ~2019-10-28 | HP ---
PATIENT: SHERWIN PETERSON MEDICAL RECORD: [id number] ACCOUNT: [id number] LOCATION:[place] : 37 ADMISSION DATE: 10/28/19 PCP: STANLEY MALDONADO MD HISTORY AND PHYSICAL EXAMINATION DIAGNOSES: 1. Unstable angina. 2. Coronary artery disease. 3. Previous PTCA and stent. 4. Abnormal nuclear stress test. 5. Smoking. 6. Chronic obstructive pulmonary disease. 7. Gastroesophageal reflux disease. HISTORY OF PRESENT ILLNESS: Mr. Peterson has a history of coronary artery disease, previous PTCA and stent. He was doing well until just recently began having episodes of chest pain and chest discomfort compatible with angina. Last cardiac stent was in 2016. His stress test is high risk, abnormal. He continues to have chest discomfort. PHYSICAL EXAMINATION: CONSTITUTIONAL/GENERAL APPEARANCE: Well nourished, well developed, appears stated age. EYES: Lids and conjunctivae noninjected. No discharge. No pallor. ENT: Lips within normal limit. No cyanosis. No pallor. NECK: Carotid arteries, bilateral normal upstroke. No bruits. No thrills. No jugular venous pressure or distention. CERVICAL LYMPH NODES: Nontender. Nonenlarged. THYROID: Not enlarged. No nodules. CARDIOVASCULAR: Precordial exam, nondisplaced. No heaves or pericardial thrills. Rate and rhythm, regular. Heart sounds, normal S1, normal S2. No S3, no gallop, no rub. Systolic murmur, not heard. Diastolic murmur, not heard. RESPIRATORY: Respiratory effort, unlabored. Normal curvature. No thoracic deformity. No chest wall tenderness. Percussion, resonant. Auscultation, clear. No wheezes, no rales, no rhonchi. ABDOMEN: Soft, nondistended, nontender. No abdominal pain, no vomiting and normal appetite. MUSCULOSKELETAL: No joint tenderness, normal gait, normal tone. SKIN: Warm and dry. OVERALL IMPRESSION: Unstable angina. We will proceed with coronary angiography. Further care depends upon the findings of the angiography. TRANSINT:[id number] Voice Confirmation ID: [id number] DOCUMENT ID: [id number] HISTORY AND PHYSICAL [id number] SHERWIN PETERSON MASON RONDON MD CC: [id number] DICTATION DATE: 10/28/19923 PROFESSIONAL VOLLEYBALL PLAYER: 10/28/19 09 PRE [facility] [address] [facility] [place] [address]
--- NOTE | ~2019-10-28 | DS ---
PATIENT:SHERWIN PETERSON :37 MEDICAL RECORD: [id number] DISCHARGE SUMMARY ADMISSION DATE: 10/28/19 DISCHARGE DATE: 10/29/19 DISCHARGE DIAGNOSES: 1. Angina. 2. Coronary artery disease. 3. Percutaneous transluminal coronary angioplasty stent left anterior descending and circumflex this admission. 4. Hypertension. 5. Hyperlipidemia. HOSPITAL COURSE: Mr. Peterson presents with anginal symptomatology, found to have critical disease of the LAD and circumflex, underwent successful PTCA stent of both territories complicated only by a small wire perforation of the distal LAD. He was watched overnight. He had no complications from this. Discharged home with the addition of Plavix to his medical regimen. Follow up with [facility] in 1 month. TRANSINT:[id number] Voice Confirmation ID: [id number] DOCUMENT ID: [id number] MASON RONDON MD CC: [id number] DICTATION DATE: 10/29/19 1004 MANAGER ICU: 10/30/19 0320 DEP CLI 10/29/19 [place] [id number] [place] [id number]
[2019-10-28] MEDS ORDERED: BAYER CHEWABLE81 MG PO (11:00)
[2019-10-28] MEDS ORDERED: COMBIVENT RESPIM4 GM INH (11:02)
[2019-10-28] MEDS ORDERED: ALLER-CHLOR4 MG PO (11:02)
[2019-10-28 11:28] VITALS: BP 129/74; BMI 27.2
[2019-10-28 11:50] LABS: BASOPHILS 0.1 % (0-2); EOSINOPHILS 0.8 % (0-7); HEMOGLOBIN 13.7 g/dL (13.5-17.5); IMMATURE GRANULOCYTES 0.2 % (0-5); LYMPHOCYTES 22.6 % (15-50); MCH 31.9 pg (26.0-34.0); MCHC 33.4 g/dL (31.0-37.0); MCV 95.3 fL (80.0-100.0); MEAN PLATELET VOLUME 9.7 fL (7.4-10.4); MONOCYTES 9.5 % (2-11); NEUTROPHILS 66.8 % (40-80); PLATELET COUNT 273 10x3/uL (130-400); RDW 14.5 % (11.5-14.5); WBC 9.7 10x3/uL (4.8-10.8)
[2019-10-28 12:11] LABS: ANION GAP 12.4 mmol/L (8-16); CALCIUM 8.8 mg/dL (8.5-10.1); CARBON DIOXIDE 27.3 mmol/L (21.0-32.0); CHOL - HDL RATIO 4.2 ratio (2.3-4.9); CREATININE - SERUM 1.2 mg/dL (0.6-1.3); LDL-HDL RATIO 2.7 ratio (1.5-3.5); POTASSIUM - SERUM 4.7 mmol/L (3.5-5.1)
--- NOTE | 2019-10-28 15:05 | NUR ---
REC TO ROOM VIA STRETCHER FROM STUDENT LIFE COORDINATOR, MONITORING INITIATED. FAMILY AT BEDSIDE. R WRIST ZBAND CDI, RADIAL PULSE PALPABLE ABOVE AND BELOW BAND. NSR 69, BP 146/65, RR 15, SAT 97%.
--- NOTE | 2019-10-28 15:15 | NUR ---
DR RONDON IN TO SEE PT. BP 143/72, NSR 73. R WRIST INTACT W RADIAL PULSE PALPABLE ABOVE AND BELOW THE BAND. NO S/S BLEEDING OR HEMATOMA.
--- NOTE | 2019-10-28 15:30 | NUR ---
R WRIST CDI, PULSE PALPABLE, NO S/S BLEEDING OR HEMATOMA
--- NOTE | 2019-10-28 16:00 | NUR ---
R WRIST CDI, PULSE PALPABLE, NO S/S BLEEDING OR HEMATOMA. FAMILY AT BEDSIDE.
--- NOTE | 2019-10-28 16:30 | NUR ---
R WRIST INTACT, ZBAND IN PLACE, RADIAL PULSE PALPABLE, NO S/S BLEEDING OR HEMATOMA. NSR 77, BP 164/71, ST 95% RA. FAMILY AT BEDSIDE.
--- NOTE | 2019-10-28 17:03 | NUR ---
R WRIST CDI, NO S/S BLEEDING OR HEMATOMA. BP 138/64, NSR 75, SAT 94% RA, FAMILY AT BEDSIDE.
--- NOTE | 2019-10-28 17:30 | NUR ---
R WRIST NO S/S BLEEDING OR HEMATOMA. CALLED REPORT TO ERIC DIAZ NURSE ON PCU RECEIVING PT.
--- NOTE | 2019-10-28 17:50 | NUR ---
TRANSPORTED TO 2114 VIA STRETCHER FROM CATH RECOVERY. PT HAS ALL BELONGINGS. PT'S HAS DC INSTRUCTIONS W F/U APPT AND RX FOR PLAVIX.
--- NOTE | 2019-10-28 18:20 | NUR ---
NEW PATIENT ADMIT FROM MUSIC COORDINATOR VIA WC ACCOMP[ANIED BY HOSPITAL STAFF. PATIENT TRANSFERRED TO BED WITHOUT DIFFICULTY. PATIENT IS ALERT ORIENTED X 4. PATIENT IS STABLE AND VSS. PATIENT DENIES ANY NEEDS OR PAIN. VSS. RT RADIAL TR BAND IN PLACE. NO BLEEDING BRUISING OR HEMATOMA NOTED. WILL CONTINUE WITH PLAN OF CARE. SR UP X 2 BED IN LOW POSITION AND CALL LIGHT IN REACH.
[2019-10-28 18:23] VITALS: Ht 188 cm; Wt 96.4 kg
[2019-10-28 20:00] VITALS: BP 130/61
--- NOTE | 2019-10-28 21:56 | NUR ---
INITAIL ROUNDS COMPLETED AT 1914 HRS. PT DENIED ANY DISCOMFORT. ASSESSMENT COMPLETED AT 1954 HRS. VSS. SR PER CM HR 79. ALERT AND ORIENTED TO PERSON, PLACE AND TIME. KILLIAN. IV TO L WRIST SL. TR BAND TO R WRIST CLEAN,DRY AND INTACT. WRIST STABILIZER IN PLACE. 1/2 OF AIR REMOVED FROM TR BAND AT 1954 HRS. NO BLEEDING, SWELLING OR BRUISING NOTED. SAT WITH PT FOR SEVERAL MINUTES AND NO CHANGE NOTED. REMAINDER OF AIR REMOVED AT 2034 HRS. NO CHANGE IN STATUS NOTED. 2X2 AND OPSITE PLACED OVER INSERTION SITE. RECHECKED SITE AT 2129 HRS WITH NO CHANGE NOTED. SR UP X2, CALL LIGHT WITHIN REACH.
--- NOTE | 2019-10-28 23:32 | NUR ---
PT AWAKE; DENIES ANY DISCOMFORT. SR PER CM HR 79. NO CHANGES TO R WRIST NOTED. PALPABLE R RADIAL PULSE. SR UP X2, CALL LIGHT WITHIN REACH.
[2019-10-29] VITALS: BP 142/65
--- NOTE | 2019-10-29 02:11 | NUR ---
PT RESTING WITH EYES CLOSED. RESP EVEN AND REGULAR. SR UP X2 CALL LIGHT WITHIN REACH.
[2019-10-29 04:00] VITALS: BP 142/72
--- NOTE | 2019-10-29 04:02 | NUR ---
NO CHANGES TO R WRIS NOTED. PT DENIES ANY DISCOMFORT. SR UP X2, CALL LIGHT WITHIN REACH.
--- NOTE | 2019-10-29 05:58 | NUR ---
VSS THROUGHOUT NIGHT. SR PER CM. PT DENIED ANY DISCOMFORT. R SRIST CLEAN,DRY AND INTACT WITHOUT ANY BRUISING OR SWELING. PALPABLE RADIAL PULSE. NEEDS MET; WILL CONTINUE TO MONITOR.
--- NOTE | 2019-10-29 07:15 | NUR ---
received pt IN BED EYES CLOSED RESP UNLABORED NAD NOTED
[2019-10-29 09:10] VITALS: BP 145/72
[2019-10-29] MEDS ORDERED: PLAVIX75 MG PO (11:05)
--- NOTE | 2019-10-29 11:05 | NUR ---
PT AND REPORT THAT DR RONDON GAVE A WRITTEN RX FOR PLAVIX YESTERDAY AND SHE HAS ALREADY TAKEN TO PHARMACY.
--- NOTE | 2019-10-29 12:15 | NUR ---
REVIEWED DISCHARGE INSTRUCTIONS WITH PT STATES UNDERSTANDING COPY GIVEN DCD SALINE LOCK TO LT HAND WITH IV CATHETER INTACT SITE FREE OF REDNESS OR EDEMA PT DISCHARGED HOME LEFT UNIT VIA W/C IN STABLE CONDITION WITH ALLPERSONAL BELONGINGS
== END 2019-10-29 12:15 | disposition home or self-care (01) ==
LOC: D.CATH 09:54 → D.M2 18:04 → D.CATH 10-29 12:15
PROVIDERS: ATTEND Internal Medicine Interventional Cardiology
DX: I25.119 Atherosclerotic heart disease of native coronary artery with unspecified angina pectoris (principal); R94.30 Abnormal result of cardiovascular function study, unspecified; J44.9 Chronic obstructive pulmonary disease, unspecified; K21.9 Gastro-esophageal reflux disease without esophagitis; Z72.0 Tobacco use
CPT/HCPCS: 93458; C9600 ×2

== ENCOUNTER 2019-12-06 12:03 | Inpatient (IN) | payer MEDICARE, BC ==
[~2019-12-06] VITALS: Ht 188 cm; Wt 90.6 kg
[~2019-12-06 12:03] MED LIST changes: +ALLER-CHLOR4 MG PO; +COMBIVENT RESPIM4 GM INH
--- NOTE | 2019-12-06 13:08 | NUR ---
RECIVED FROM DR OFFICE TO ROOM 2109 PER WC. ADMIT ASSESSMENT PER RN
[2019-12-06 13:25] VITALS: BP 142/84
[2019-12-06] MEDS ORDERED: PROVENTIL/2.5 MG/3 M INH (13:42)
[2019-12-06] MEDS ORDERED: CLARITIN 10 MG10 MG PO (13:45)
[2019-12-06] MEDS ORDERED: SINGULAIR10 MG PO (13:46)
[2019-12-06 14:17] VITALS: BP 142/84; BMI 27.6
[2019-12-06 14:32] LABS: BASOPHILS 0 % (0-2); EOSINOPHILS 0 % (0-7); HEMATOCRIT 35.8 % (42.0-54.0); HEMOGLOBIN 11.4 g/dL (13.5-17.5); IMMATURE GRANULOCYTES 0.5 % (0-5); LYMPHOCYTES 13.5 % (15-50); MCH 30.9 pg (26.0-34.0); MCHC 31.8 g/dL (31.0-37.0); MEAN PLATELET VOLUME 9.3 fL (7.4-10.4); MONOCYTES 8.7 % (2-11); NEUTROPHILS 77.3 % (40-80); PLATELET COUNT 309 10x3/uL (130-400); RBC 3.69 10x6/uL (4.20-6.10); RDW 14.8 % (11.5-14.5); WBC 15.1 10x3/uL (4.8-10.8)
[2019-12-06 14:55] LABS: ALBUMIN 2.7 g/dL (3.4-5.0); ALKALINE PHOSPHATASE 54 U/L (30-120); ALT (SGPT) 75 U/L (10-68); BILIRUBIN - TOTAL 0.35 mg/dL (0.2-1.3); CALC OSMOLALITY 272 mosm/kg (275-300); CALCIUM 8.3 mg/dL (8.5-10.1); CARBON DIOXIDE 28.9 mmol/L (21.0-32.0); CHLORIDE - SERUM 102 mmol/L (98-107); CREATINE KINASE 56 UL (21-232); CREATININE - SERUM 1.3 mg/dL (0.6-1.3); GLUCOSE 85 mg/dL (74-106); PHOSPHOROUS 3.3 mg/dL (2.5-4.9); POTASSIUM - SERUM 4.2 mmol/L (3.5-5.1); PRO BNP 8181 pg/mL (0-450); PROTEIN - SERUM 7.3 g/dL (6.4-8.2); SODIUM 135 mmol/L (136-145); THYROID STIMULATING HORMONE 1.37 uIU/mL (0.36-3.74); TROPONIN-I 0.053 ng/mL (0.000-0.060); UREA NITROGEN 23 mg/dL (7-18); eGFR NON AFRICAN AMERICAN 56 mL/min (90-120)
[2019-12-06 15:01] LABS: APTT 28.2 SECONDS (22.8-39.4); INR 1.15 (0.85-1.17); PROTIME 14.6 SECONDS (11.6-15.0)
[2019-12-06 15:02] LABS: D-DIMER-QUANTITATIVE 1.71 ug/mLFEU (0.20-0.54)
--- NOTE | 2019-12-06 19:30 | NUR ---
PT IN BED, EYES CLOSED, RESP EVEN AND UNLABORED, NO DISTRESS NOTED, CL IN REACH, SR UP X 2.
[2019-12-06 20:31] LABS: BILIRUBIN NEGATIVE (NEGATIVE); GLUCOSE NEGATIVE (NEGATIVE); KETONE NEGATIVE (NEGATIVE); NITRITE NEGATIVE (NEGATIVE); UROBILINOGEN NORMAL (NORMAL)
[2019-12-06 21:12] VITALS: BP 125/59
[2019-12-06 21:57] LABS: CKMB 3.9 U/L (0.0-3.6); CREATINE KINASE 59 UL (21-232); TROPONIN-I 0.056 ng/mL (0.000-0.060)
[2019-12-07] VITALS: BP 129/70
--- NOTE | 2019-12-07 00:05 | NUR ---
REPORT RECEIVED FROM KALEB AND THIS SUPERVISOR BODY ASSEMBLY IS NOW CARING FOR THIS PT. PT IS LYING IN BED AWAKE, ALERT AND ORIENTED X4. RESP IRREG, SOB WITH EXERTION. O2 @ 2L/NC. REPORTS NONPROD COUGH. TELEMETRY APPLIED AND SHOWS SR WITH RATE OF 75. DENIES PAIN. AMBULATORY. TRACE EDEMA NOTED TO BLE WITH WRINKLING NOTED. SALINE LOCK NOTED TO LT FOREARM. NO DISTRESS. DENIES NEEDS. SR ELEVATED X2. CL IN REACH.
--- NOTE | 2019-12-07 02:21 | NUR ---
CHROMIUM PLATER IN ROOM FOR BLOOD DRAW. SOLUMEDROL GIVEN PER ORDER AT THIS TIME. PT STATES HE HASNT SLEPT ALL NIGHT. EDUCATED ON SIDE EFFECTS OF STEROIDS AND HE VERBALIZED UNDERSTANDING. NO DISTRESS. VERY TALKATIVE. CL IN REACH.
[2019-12-07 03:47] LABS: BASOPHILS 0.1 % (0-2); EOSINOPHILS 0 % (0-7); HEMATOCRIT 37.6 % (42.0-54.0); HEMOGLOBIN 11.8 g/dL (13.5-17.5); IMMATURE GRANULOCYTES 0.8 % (0-5); LYMPHOCYTES 13.5 % (15-50); MCH 30.4 pg (26.0-34.0); MCHC 31.4 g/dL (31.0-37.0); MCV 96.9 fL (80.0-100.0); MEAN PLATELET VOLUME 9.5 fL (7.4-10.4); MONOCYTES 7.9 % (2-11); NEUTROPHILS 77.7 % (40-80); PLATELET COUNT 352 10x3/uL (130-400); RBC 3.88 10x6/uL (4.20-6.10); RDW 14.8 % (11.5-14.5); WBC 13.4 10x3/uL (4.8-10.8)
[2019-12-07 04:07] LABS: CALC OSMOLALITY 270 mosm/kg (275-300); CALCIUM 7.9 mg/dL (8.5-10.1); CARBON DIOXIDE 29.6 mmol/L (21.0-32.0); CHLORIDE - SERUM 99 mmol/L (98-107); CKMB 3.4 U/L (0.0-3.6); CREATINE KINASE 55 UL (21-232); CREATININE - SERUM 1.3 mg/dL (0.6-1.3); GLUCOSE 109 mg/dL (74-106); POTASSIUM - SERUM 4.2 mmol/L (3.5-5.1); SODIUM 133 mmol/L (136-145); TROPONIN-I 0.049 ng/mL (0.000-0.060); UREA NITROGEN 25 mg/dL (7-18); eGFR NON AFRICAN AMERICAN 56 mL/min (90-120)
--- NOTE | 2019-12-07 04:46 | NUR ---
LYING ON LT SIDE IN BED WITH EYES CLOSED. RESP NONLABORED. NO DISTRESS. CL IN REACH.
[2019-12-07 05:17] VITALS: BP 123/73
[2019-12-07 08:03] VITALS: BP 141/75
[2019-12-07 10:20] VITALS: Ht 188 cm; Wt 90.6 kg
--- NOTE | 2019-12-07 10:57 | NUR ---
I have reviewed this patient and I concur with the Shift Assessment completed by the Licensed Practical Nurse today this shift.
[2019-12-07 11:35] VITALS: BP 123/62
[2019-12-07 12:35] LABS: % SATURATION 24 % (15-55); IRON 54 ug/dl (35-150); TOTAL IRON BIND CAPACITY 225 ug/dl (260-445); UNSAT IRON BIND CAPACITY 171 ug/dl (150-375)
[2019-12-07 13:05] LABS: FERRITIN 81 ng/mL (3-244)
[2019-12-07 14:57] VITALS: BP 118/53
--- NOTE | 2019-12-07 17:33 | NUR ---
LEFT FA 22G IV INFITRATED. INSERTED 20G IV IN RIGHT WRIST.
--- NOTE | 2019-12-07 19:43 | NUR ---
RECEIVED BEDSIDE REPORT. PATIENT IS ALERT AND ORIENTED, RESTING COMFORTABLY IN BED. RESPIRATIONS ARE EVEN AND UNLABORED. NO S/S OF DISTRESS. NO C/O PAIN. CALL IGHT WITHIN REACH. WILL CPOC.
[2019-12-07 20:00] VITALS: BP 125/61
[2019-12-08 00:30] VITALS: BP 118/58
[2019-12-08 04:30] VITALS: BP 138/76
[2019-12-08 05:34] LABS: BASOPHILS 0 % (0-2); EOSINOPHILS 0 % (0-7); HEMATOCRIT 36.8 % (42.0-54.0); HEMOGLOBIN 11.9 g/dL (13.5-17.5); IMMATURE GRANULOCYTES 0.8 % (0-5); LYMPHOCYTES 10.8 % (15-50); MCH 30.7 pg (26.0-34.0); MCHC 32.3 g/dL (31.0-37.0); MCV 95.1 fL (80.0-100.0); MEAN PLATELET VOLUME 9.3 fL (7.4-10.4); MONOCYTES 9.3 % (2-11); NEUTROPHILS 79.1 % (40-80); PLATELET COUNT 330 10x3/uL (130-400); RBC 3.87 10x6/uL (4.20-6.10); RDW 14.7 % (11.5-14.5); WBC 13.9 10x3/uL (4.8-10.8)
[2019-12-08 06:02] LABS: ANION GAP 10.1 mmol/L (8-16); CREATININE - SERUM 1.4 mg/dL (0.6-1.3); MAGNESIUM - SERUM 2.1 mg/dL (1.8-2.4); POTASSIUM - SERUM 4.1 mmol/L (3.5-5.1)
--- NOTE | 2019-12-08 07:21 | NUR ---
PT SITTING UP IN BED, RR EVEN AND UNLABORED. DENIES NEEDS OR PAIN AT THIS TIME. CALL LIGHT WITHIN REACH. BED IN LOWEST POSITION. WILL CONTINUE TO MONITOR.
[2019-12-08 08:50] VITALS: BP 138/75
--- NOTE | 2019-12-08 10:30 | NUR ---
I have reviewed this patient and I concur with the Shift Assessment completed by the Licensed Practical Nurse today this shift.
[2019-12-08 14:11] VITALS: BP 130/63
[2019-12-08 18:05] VITALS: BP 128/64
--- NOTE | 2019-12-08 19:30 | NUR ---
PT IN BED, AAO X 3, RESP EVEN AND UNLABORED, NO DISTRESS NOTED, CL IN REACH, SR UP X 2.
[2019-12-08 20:00] VITALS: BP 131/64
[2019-12-09] VITALS: BP 131/65
[2019-12-09 03:06] LABS: IMMUNOGLOBULIN E 882 IU/mL (6-495)
[2019-12-09 04:00] VITALS: BP 132/66
[2019-12-09 05:06] LABS: BASOPHILS 0.1 % (0-2); EOSINOPHILS 0.1 % (0-7); HEMOGLOBIN 12.7 g/dL (13.5-17.5); LYMPHOCYTES 13.2 % (15-50); MCH 30.5 pg (26.0-34.0); MCHC 31.8 g/dL (31.0-37.0); MCV 96.2 fL (80.0-100.0); MEAN PLATELET VOLUME 9.2 fL (7.4-10.4); MONOCYTES 10.1 % (2-11); NEUTROPHILS 75.5 % (40-80); PLATELET COUNT 331 10x3/uL (130-400); RBC 4.16 10x6/uL (4.20-6.10); WBC 13.9 10x3/uL (4.8-10.8)
[2019-12-09 05:16] LABS: ANION GAP 11.3 mmol/L (8-16); CALCIUM 7.9 mg/dL (8.5-10.1); CARBON DIOXIDE 28.5 mmol/L (21.0-32.0); CREATININE - SERUM 1.5 mg/dL (0.6-1.3); MAGNESIUM - SERUM 2.1 mg/dL (1.8-2.4); POTASSIUM - SERUM 3.8 mmol/L (3.5-5.1)
--- NOTE | 2019-12-09 09:25 | MORECARE ---
CASE MANAGEMENT DISCHARGE SUMMARY PATIENT: SHERWIN PETERSON UNIT: [id number] ADM DATE: 12/06/19 AGE: 84 : 36 SEX: M ROOM/BED: D.2101 AUTHOR: DOROTHY,DOC PHYSICIAN: REFERRING PHYSICIAN: STANLEY HICKS MD DATE OF SERVICE: 12/09/19 Discharge Plan Patient Name: SHERWIN PETERSON Facility: [facility]:[place] : 1935 Planned Disposition: Home Anticipated Discharge Date: 12/09/19 Discharge Date: Expected LOS: 3 Initial Reviewer: [email or web address] Initial Review Date: 12/09/2019 Generated: 12/09/19 10:25 am Comments DCP- Discharge Planning Updated by [email or web address]: Kori Cerda on 12/09/19 8:[address] Patient Name: SHERWIN PETERSON Admission Status: Urgent Accout number: [id number] Admission Date: 12-06-2019 : 1935 Admission Diagnosis:SHORTNESS OF BREATH Attending: STANLEY HICKS Current LOS: 3 Anticipated DC Date: 12-09-2019 Planned Disposition: Home Primary Insurance: MEDICARE A & B DC Plan - Home with spouse/declines need for HHS Discharge Planning Comments: CM met with patient to complete initial dc planning assessment. CM educated patient on the CM role and verbal consent given by patient to complete assessment. Patient lives at home with spouse. At discharge patient plans to return and feels this is a safe discharge. CM discussed availability of home health, rehab services, and medical equipment. Patient denied known discharge needs at this time. CM will continue to follow and will assist as needed with dc plans/needs. Academic Support Specialist: Kori Cerda DCPIA - Discharge Planning Initial Assessment Updated by [email or web address]: Kori Cerda on 12/09/19 9:21 am * Is the patient Alert and Oriented? Yes * How many steps to enter\exit or inside your home? 1/0 * PCP Dr. Hicks * Pharmacy [facility] [address] * Preadmission Environment Home with Family * ADLs Independent * Equipment Cane Walker * List name and contact numbers for known caregivers / representatives who currently or will assist patient after discharge: Nevin - spouse - [phone] * Verbal permission to speak to the caregivers and representatives has been obtained from the patient. Yes * Community resources currently utilized None * Additional services required to return to the preadmission environment? No * Can the patient safely return to the preadmission environment? Yes * Has this patient been hospitalized within the prior 30 days at any hospital? No Coverage Notice Reviewer: [email or web address] Mone Sosay Prashant Notice Issued Date-Time: 12/09/2019 9:18 Notice Type: IM Discharge Notice Notice Delivered To: Patient Relationship to Patient: Self Cash Applications Representative Name: Delivery Method: HAND - Hand Delivered Ana Days: Prior Verbal Notification: Recipient Understood Notice: Yes Recipient Signature: Yes Med Rec Note Co-signed by Attending: Coverage Notice Comment: IMM explained, signed, given, copy placed in MR Patient Name: SHERWIN PETERSON Page [phone] at 0925 All edits/amendments must be made on the electronic document DICTATION DATE: 12/09/19924 ELECTRICAL INSTALLATION SUPERVISOR: MARLON 12/09/19924 RPT#: [id number] DC DATE: STATUS: ADM IN [facility] [address] [place] [address] END OF REPORT
[2019-12-09 10:56] VITALS: BP 127/65
[2019-12-09] MEDS ORDERED: LEVOFLOXACIN500 MG PO (12:14)
[2019-12-09] MEDS ORDERED: MUCINEX600 MG PO (12:14)
[2019-12-09] MEDS ORDERED: HCTZ25 MG PO (12:14)
[2019-12-09] MEDS ORDERED: TESSALON PERLE100 MG PO (12:14)
[2019-12-09] MEDS ORDERED: MEDROL DOSE PACK4 MG PO (12:19)
--- NOTE | 2019-12-09 13:06 | NUR ---
SMOKING CESSATION FOR [place] QUITLINE GIVEN TO PRIMARY NURSE TO BE FILLED OUT.
--- NOTE | 2019-12-09 13:58 | NUR ---
TELEMETRY DC'D. RIGHT WRIST 20G IV DC'D WITH CATH INTACT. PT STATES HE DOES NOT NEED THE TOBACCO QUITLINE AND DOES NOT NEED TO SIGN THE FORM. I VERBALIZED UNDERSTANDING. DISCHARGE INSTRUCTIONS GIVEN TO PT. PT HAS NO FURTHER QUESTIONS. CHART COPY SIGNED.
[2019-12-09 14:29] VITALS: BP 117/74
--- NOTE | 2019-12-09 15:00 | NUR ---
PT TAKEN OUT VIA WC THROUGH ER ENTRANCE WITH ALL BELONGINGS AND LEFT WITH FRIEND IN PERSONAL CAR.
--- NOTE | 2019-12-09 16:24 | MORECARE ---
CASE MANAGEMENT DISCHARGE SUMMARY PATIENT: SHERWIN PETERSON UNIT: [id number] ADM DATE: 12/06/19 AGE: 84 : 36 SEX: M ROOM/BED: D.2107 AUTHOR: DOROTHY,DOC PHYSICIAN: REFERRING PHYSICIAN: STANLEY HICKS MD DATE OF SERVICE: 12/09/19 Discharge Plan Patient Name: SHERWIN PETERSON Facility: [facility]:[place] : 1935 Planned Disposition: Home Anticipated Discharge Date: 12/09/19 Discharge Date: 12/09/2019 Expected LOS: 3 Initial Reviewer: [email or web address] Initial Review Date: 12/09/2019 Generated: 12/09/19 5:24 pm Comments DCP- Discharge Planning Updated by [email or web address]: Kori Cerda on 12/09/19 8:[address] Patient Name: SHERWIN PETERSON Admission Status: Urgent Accout number: [id number] Admission Date: 12-06-2019 : 1935 Admission Diagnosis:SHORTNESS OF BREATH Attending: STANLEY HICKS Current LOS: 3 Anticipated DC Date: 12-09-2019 Planned Disposition: Home Primary Insurance: MEDICARE A & B DC Plan - Home with spouse/declines need for HHS Discharge Planning Comments: CM met with patient to complete initial dc planning assessment. CM educated patient on the CM role and verbal consent given by patient to complete assessment. Patient lives at home with spouse. At discharge patient plans to return and feels this is a safe discharge. CM discussed availability of home health, rehab services, and medical equipment. Patient denied known discharge needs at this time. CM will continue to follow and will assist as needed with dc plans/needs. Geospatial Information Technologist: Kori Cerda DCPIA - Discharge Planning Initial Assessment Updated by [id number]: Kori Cerda on 12/09/19 9:21 am * Is the patient Alert and Oriented? Yes * How many steps to enter\exit or inside your home? 1/0 * PCP Dr. Hicks * Pharmacy [facility] on [address] * Preadmission Environment Home with Family * ADLs Independent * Equipment Cane Walker * List name and contact numbers for known caregivers / representatives who currently or will assist patient after discharge: Nevin - hikteb - [phone] * Verbal permission to speak to the caregivers and representatives has been obtained from the patient. Yes * Community resources currently utilized None * Additional services required to return to the preadmission environment? No * Can the patient safely return to the preadmission environment? Yes * Has this patient been hospitalized within the prior 30 days at any hospital? No Coverage Notice Reviewer: [email or web address] Mone Kori Prashant Notice Issued Date-Time: 12/09/2019 9:18 Notice Type: IM Discharge Notice Notice Delivered To: Patient Relationship to Patient: Self Head Of Sales Promotion Name: Delivery Method: HAND - Hand Delivered Ana Days: Prior Verbal Notification: Recipient Understood Notice: Yes Recipient Signature: Yes Med Rec Note Co-signed by Attending: Coverage Notice Comment: IMM explained, signed, given, copy placed in MR Last DP export: 12/09/19 8:25 a Patient Name: SHERWIN PETERSON Page [phone] at 1624 All edits/amendments must be made on the electronic document DICTATION DATE: 12/09/191623 AUTOMOBILE LOCATOR: MARLON 12/09/191623 RPT#: [id number] DC DATE:12/09/19 STATUS: DIS IN [facility] [address] [place] [address] END OF REPORT
--- NOTE | 2019-12-12 09:57 | EC ---
PATIENT:SHERWIN PETERSON DATE OF SERVICE: 12/06/19 SEX: M MEDICAL RECORD: [id number] DATE OF : [birth year] LOCATION:D.M2 D.210 AGE OF PATIENT: 84 ADMISSION DATE: 12/06/19 REFERRING PHYSICIAN: INTERPRETING PHYSICIAN: POPEYE CORNEJO MD ECHOCARDIOGRAM REPORT ECHO CHARGES 5 ECHO LIMITED Date: 12/07/19 CLINICAL DIAGNOSIS: CHF RECENT STENTS ECHOCARDIOGRAPHIC MEASUREMENTS (adult normal given) AC root (d.<3.7cm) 3.9 cm LV Septum d (<1.2 cm> 1.3 cm Valve Excursion 1.6 cm LV Septum (systole) 1.4 cm Left Atria (s.<4.0cm> 4.9 cm LVPW d(<1.2cm) 1.6 cm RV (d.<2.3cm) cm LVPW (sytole) 1.7 cm LV diastole(<5.6CM) 6.6 cm MV E-F(>70mm/sec) cm LV systole 5.2 cm LVOT Diameter cm MV exc.(>10mm) 1.4 cm Est.ejection fraction (50-75%) % DOPPLER: LVIT cm/sec A cm/sec E cm/sec LA cm/sec RVSP mmHg LVOT cm/sec AOP1/2T m/s Asc. Ao cm/sec RVOT cm/sec RA cm/sec PA cm/sec AV Gradient Peak mmHg AV Mean mmHg AV Area cm MV Gradient Peak mmHg MV Mean mmHg MV Area cm COMMENTS: Clinical Nurse Manager: 2 BREN MCINTYRE Coat Presser: 3 Dr. Chang TAPE# PACS Pericardial Effusion N DATE OF SERVICE: Technically limited study includes 2D, M-Mode. LVH is present. LV internal dimension is normal. Wall motion is normal. EF is greater than or equal to 55%. Aortic valve is tricuspid with good valve excursion. Left atrium is dilated at 4.9 cm. Mitral valve shows good valve excursion. No evidence of stenosis. Right-sided chambers are grossly normal. TRANSINT:[id number] Voice Confirmation ID: [id number] DOCUMENT ID: [id number] ECHOCARDIOGRAM REPORT [id number] SHERWIN PETERSON POPEYE CORNEJO MD at 0957 CC: [id number] DICTATION DATE: 12/08/19 1352 PASTE WORKER: 12/08/19 1401 DIS IN 12/09/19 [facility] [address] [place] [address]
== END 2019-12-09 15:15 | disposition home or self-care (01) | DRG 291 ==
LOC: D.M2 12:03 → D.SDCHOLD 12:03 → D.M2 12:29
PROVIDERS: Family Medicine; Internal Medicine Pulmonary Disease; ADMIT Family Medicine; ATTEND Family Medicine
DX: I50.33 Acute on chronic diastolic (congestive) heart failure (principal); J18.9 Pneumonia, unspecified organism; J44.1 Chronic obstructive pulmonary disease with (acute) exacerbation; J44.0 Chronic obstructive pulmonary disease with (acute) lower respiratory infection; N17.9 Acute kidney failure, unspecified; D64.9 Anemia, unspecified; K21.9 Gastro-esophageal reflux disease without esophagitis; I25.10 Atherosclerotic heart disease of native coronary artery without angina pectoris; M19.90 Unspecified osteoarthritis, unspecified site; G47.00 Insomnia, unspecified; F32.9 Major depressive disorder, single episode, unspecified; I27.20 Pulmonary hypertension, unspecified; J30.9 Allergic rhinitis, unspecified; E78.5 Hyperlipidemia, unspecified; Z87.891 Personal history of nicotine dependence; Z86.73 Personal history of transient ischemic attack (TIA), and cerebral infarction without residual deficits

== ENCOUNTER 2020-11-02 09:32 | Inpatient (IN) | payer MEDICARE, BC ==
[~2020-11-02] VITALS: Ht 188 cm; Wt 89.8 kg
[2020-11-02] VITALS (8 sets, daily range): BP systolic 117–139; BP diastolic 53–98; BMI 25.4
[~2020-11-02 09:32] MED LIST changes: +HCTZ25 MG PO; +LEVOFLOXACIN500 MG PO; +MEDROL DOSE PACK4 MG PO; +MUCINEX600 MG PO; +PROVENTIL/2.5 MG/3 M INH; +TESSALON PERLE100 MG PO
[2020-11-02 11:50] LABS: BASOPHILS 0.1 % (0-2); EOSINOPHILS 0.4 % (0-7); HEMATOCRIT 38.6 % (42.0-54.0); IMMATURE GRANULOCYTES 0.5 % (0-5); LYMPHOCYTE ABS# 1.23 10x3/uL (1.32-3.57); LYMPHOCYTES 11.1 % (15-50); MCH 32.1 pg (26.0-34.0); MCHC 33.7 g/dL (31.0-37.0); MCV 95.3 fL (80.0-100.0); MEAN PLATELET VOLUME 9.3 fL (7.4-10.4); MONOCYTES 7.5 % (2-11); NEUTROPHIL ABS# 8.92 10x3/uL (1.78-5.38); NEUTROPHILS 80.4 % (40-80); RBC 4.05 10x6/uL (4.20-6.10); RDW 14.4 % (11.5-14.5); WBC 11.1 10x3/uL (4.8-10.8)
[2020-11-02 11:53] LABS: APTT 26.4 SECONDS (22.8-39.4); INR 1.18 (0.85-1.17); PROTIME 13.9 SECONDS (11.6-15.0)
[2020-11-02 11:55] LABS: PLATELET COUNT 204 10x3/uL (130-400)
[2020-11-02 12:07] LABS: ANION GAP 12.6 mmol/L (8-16); CALCIUM 8.6 mg/dL (8.5-10.1); CARBON DIOXIDE 24.1 mmol/L (21.0-32.0); CREATININE - SERUM 1.1 mg/dL (0.6-1.3); POTASSIUM - SERUM 4.7 mmol/L (3.5-5.1)
[2020-11-02 12:15] LABS: ALBUMIN 3.2 g/dL (3.4-5.0); BILIRUBIN - TOTAL 0.41 mg/dL (0.2-1.3); PROTEIN - SERUM 6.7 g/dL (6.4-8.2)
--- NOTE | 2020-11-02 13:50 | NUR ---
ASSUMED CARE OF PT. PT RESTING IN BED, WITH EYES CLOSED. AROUSES EASILY WHEN NAME CALLED. O2 SATS 87-90% ON RA AT REST O2 PLACED @ 2 LPM PNC
--- NOTE | 2020-11-02 14:46 | NUR ---
REPORT TO NURSE BRODIE
--- NOTE | 2020-11-02 14:50 | NUR ---
TO CT THEN TO ROOM # 2234, CONDITION STABLE
[2020-11-02 20:52] LABS: BILIRUBIN NEGATIVE (NEGATIVE); KETONE NEGATIVE (NEGATIVE); NITRITE NEGATIVE (NEGATIVE); UROBILINOGEN NORMAL mg/dL (< 2)
--- NOTE | 2020-11-02 21:02 | NUR ---
PATIENT REPORTED AT BEDSIDE SHIFT REPORT THAT HE HAD NOT URINATED SINCE THIS MORNING. HE CAN FEEL THE URGE TO URINATE BUT IS UNABLE TO PASS ANY URINE. BLADDER DISTENDED TO PALPATION. PER TANIKA MAYA, BLADDER SCAN, IF GREATER THAN [address] KNUTSON. BLADDER SCAN SHOWED 457 ML. 16 FR PLACED. SMALL RESISTANCE NOTED AT PROSTATE BUT OTHERWISE NONCOMPLICATED INSERTION. DRAINED 580 ML OF CLEAR YELLOW URINE. SAMPLE COLLECTED AND SENT TO LAB FOR UACS. MEDICATED FOR PAIN PRIOR TO INSERTION. RESTING COMFORTABLY AT THIS TIME. WILL CONTINUE TO MONITOR.
[2020-11-03 00:38] VITALS: BP 120/60
[2020-11-03 04:57] VITALS: BP 134/87
[2020-11-03 06:27] LABS: BASOPHILS 0.2 % (0-2); EOSINOPHILS 1.9 % (0-7); HEMATOCRIT 36.1 % (42.0-54.0); IMMATURE GRANULOCYTES 0.2 % (0-5); LYMPHOCYTE ABS# 0.96 10x3/uL (1.32-3.57); LYMPHOCYTES 9.4 % (15-50); MCH 31.7 pg (26.0-34.0); MCHC 33.2 g/dL (31.0-37.0); MCV 95.5 fL (80.0-100.0); MEAN PLATELET VOLUME 9.3 fL (7.4-10.4); MONOCYTES 9.7 % (2-11); NEUTROPHIL ABS# 8.01 10x3/uL (1.78-5.38); NEUTROPHILS 78.6 % (40-80); PLATELET COUNT 180 10x3/uL (130-400); RBC 3.78 10x6/uL (4.20-6.10); RDW 14.6 % (11.5-14.5); WBC 10.2 10x3/uL (4.8-10.8)
[2020-11-03 07:12] LABS: ALBUMIN 2.7 g/dL (3.4-5.0); ALKALINE PHOSPHATASE 133 U/L (30-120); ALT (SGPT) 127 U/L (10-68); BILIRUBIN - TOTAL 1.11 mg/dL (0.2-1.3); CALC OSMOLALITY 270 mosm/kg (275-300); CALCIUM 7.9 mg/dL (8.5-10.1); CARBON DIOXIDE 24.1 mmol/L (21.0-32.0); CHLORIDE - SERUM 104 mmol/L (98-107); GLUCOSE 102 mg/dL (74-106); POTASSIUM - SERUM 4.1 mmol/L (3.5-5.1); PROTEIN - SERUM 5.9 g/dL (6.4-8.2); SODIUM 136 mmol/L (136-145); UREA NITROGEN 10 mg/dL (7-18); eGFR NON AFRICAN AMERICAN 76 mL/min (90-120)
[2020-11-03 07:31] VITALS: Ht 188 cm; Wt 89.8 kg
[2020-11-03 07:42] VITALS: BP 121/62
--- NOTE | 2020-11-03 07:52 | NUR ---
PREOP CALLED MEDS GIVEN AND PT TAKEN TO OR.
--- NOTE | 2020-11-03 10:46 | NUR ---
PATIENT RETURNED FROM OR DROWSY RESPONDS TO VERBAL STIMULI AT BEDSIDE. LEFT PEDAL PULSE STRONG ABLE TO MOVE TOES. DENIES ANY PAIN. WILL CONTINUE TO MONITOR.
--- NOTE | 2020-11-03 12:03 | NUR ---
REHAB PRESCREEN PT TO GO INTO SURGERY TODAY FOR REPAIR OF HIP FRACTURE, WILL MONITOR PROGRESS AND WILL REEVAL WHEN PT HAS STARTED THERAPY AND COMPLETED POST OP PROTOCOL. THANK YOU FOR THIS EVAL. CLINICIAL LIASION MAYRA MARY LPN
[2020-11-03 12:06] VITALS: BP 116/60
[2020-11-03 15:46] VITALS: BP 133/62
--- NOTE | 2020-11-03 19:08 | NUR ---
PATIENT RESTING IN BED WITH NO S/S OF DISTRESS AND DENIES NEEDS AT THIS TIME. IV TO RIGHT WRIST, NO SIGNS OF INFILTRATION NOTED. DRESSING TO LEFT HIP C/D/I. PATIENT ON 2L OXYGEN, 100%. BED IN LOWEST POSITION AND CALL LIGHT IN REACH. ENCOURAGED PATIENT TO CALL WITH NEEDS.
[2020-11-03 20:02] VITALS: BP 127/65
--- NOTE | 2020-11-03 20:38 | NUR ---
ADMINISTERED MEDS PER ORDERS. PATIENT ARGELIA WELL. ENCOURAGED TO CALL WITH NEEDS.
[2020-11-04 00:41] VITALS: BP 135/61
[2020-11-04 04:52] VITALS: BP 140/67
[2020-11-04 07:47] LABS: ALBUMIN 2.3 g/dL (3.4-5.0); ALKALINE PHOSPHATASE 120 U/L (30-120); ALT (SGPT) 121 U/L (10-68); BILIRUBIN - TOTAL 0.55 mg/dL (0.2-1.3); CALCIUM 7.2 mg/dL (8.5-10.1); CARBON DIOXIDE 19.5 mmol/L (21.0-32.0); CHLORIDE - SERUM 103 mmol/L (98-107); CREATININE - SERUM 0.9 mg/dL (0.6-1.3); GLUCOSE 110 mg/dL (74-106); POTASSIUM - SERUM 4.7 mmol/L (3.5-5.1); PROTEIN - SERUM 5.6 g/dL (6.4-8.2); SODIUM 133 mmol/L (136-145); eGFR NON AFRICAN AMERICAN 85 mL/min (90-120)
[2020-11-04 07:57] LABS: UREA NITROGEN 15 mg/dL (7-18)
[2020-11-04 07:58] LABS: CALC OSMOLALITY 267 mosm/kg (275-300)
[2020-11-04 08:07] LABS: BASOPHILS 0.1 % (0-2); EOSINOPHILS 0.9 % (0-7); HEMATOCRIT 32.3 % (42.0-54.0); HEMOGLOBIN 10.7 g/dL (13.5-17.5); IMMATURE GRANULOCYTES 0.5 % (0-5); LYMPHOCYTE ABS# 1.36 10x3/uL (1.32-3.57); LYMPHOCYTES 11.1 % (15-50); MCH 31.9 pg (26.0-34.0); MCHC 33.1 g/dL (31.0-37.0); MCV 96.4 fL (80.0-100.0); MONOCYTES 10.9 % (2-11); NEUTROPHIL ABS# 9.41 10x3/uL (1.78-5.38); NEUTROPHILS 76.5 % (40-80); PLATELET COUNT 167 10x3/uL (130-400); RBC 3.35 10x6/uL (4.20-6.10); RDW 14.8 % (11.5-14.5); WBC 12.3 10x3/uL (4.8-10.8)
--- NOTE | 2020-11-04 09:09 | NUR ---
ALERT AND ORIENTED. ASSESSMENT COMPLETE. DENIES NEEDS. BED LOW. CALL ELIZABETH AND PERSONAL ITEMS IN REACH. WILL CONTINUE TO MONITOR.
[2020-11-04 09:33] VITALS: BP 123/65
--- NOTE | 2020-11-04 12:08 | NUR ---
SITTING UP IN CHAIR AT BEDSIDE PER PT. EATING LUNCH. DENIES NEEDS.
[2020-11-04 12:23] VITALS: BP 108/69
--- NOTE | 2020-11-04 13:15 | OP ---
PATIENT NAME: SHERWIN VERONICA MEDICAL RECORD: [id number] :37 LOCATION:D.MS [id number] ADMISSION DATE:11/02/20 SURGEON: BRIAN PLATT DO DATE OF OPERATION: 11/02/2020 PROCEDURE PERFORMED: Left total hip arthroplasty. PREOPERATIVE DIAGNOSIS: Displaced left femoral neck fracture. POSTOPERATIVE DIAGNOSIS: Displaced left femoral neck fracture. INDICATIONS: Mr. Veronica is an 84-year-old male that fell yesterday and fractured his left femoral neck, it is displaced and I saw him in the afternoon about 5:00 p.m. when he got admitted. I told him we would put him off for today. He had pain control overnight and I informed him of the risks of this including infection, bleeding, fracture, failure of implants, need for further surgery, continued pain, loss of motion, blood clots, damage to nerves and vessels in the area, need for blood products and even and he signed the consent. SURGEON: Brian Platt DO DESCRIPTION OF PROCEDURE: The patient was taken to the operative suite, laid in supine position, given general anesthetic and intubated. He was given 2 grams of Ancef preoperatively. He does have a KEFLEX ALLERGY, but his reaction was a rash and he did not develop a rash upon giving the Ancef. He was also given a gram of TXA. The patient was moved over to the [place] table and positioned. The left hip was then prepped and draped in sterile fashion. A timeout was performed. Everyone was in agreement with the correct side, site, patient, and procedure. I then began by marking out the incision over the tensor fasciae latae muscle and made an incision through the skin and careful dissection was done with the plasma blade to the tensor fascia geeta muscle. I cleaned it off the fascia, took the fascia anteriorly and the muscle belly posteriorly, opened up the rectus interval, rectus medially and the tensor fascia geeta laterally. I then encountered the ascending branch of lateral femoral circumflex, tied it off and coagulated it with Aquamantys and cut it. I then opened up the capsule and tagged it, put Hohmann's around the neck of the femur and then cut distal to the femoral neck cut. I then removed that in the femoral head. I then put in a Charnley retractor and removed the labrum as well as the pulvinar and coagulated any bleeding at that time. I then reamed up to a 58 cup and then impacted 58 cup in, it fit very well and was very well placed, and checked to be sure with a Vin. I then put in the liner, impacted in, it was in good position on x-ray and visually. I then exposed the femur and put in the femur elevator and exposed the femur and used a cookie cutter and canal finder and then broached up to a 16. 16 was then trialed with a -6 neck. It was a little short, so we trialed a -3 and then a -3 fit very well, had equal lengths to the right on AP pelvis. I then dislocated that and removed the trials, irrigated, put in a 16 stem with a -3 dual mobility head and neck, impacted it on and then reduced the hip. X-rays were taken. There were no fractures seen in the femur and the stem was very well positioned. The cup was also well positioned and there were equal lengths on AP pelvis to the right. I then irrigated with 10% povidone iodine and 500 mL of normal saline solution. Elver Elliott, certified surgical services tech, irrigated that out with a liter of normal saline and then put in Eva and vancomycin and tobramycin powder, then closed the tensor fascia geeta fascia with #1 Vicryl in a [id number] and running locking stitch and the skin with 2-0 Vicryl in inverted interrupted fashion, 4-0 Monocryl around the skin and then OPERATIVE REPORT [id number] SHERWIN VERONICA glue placed on the skin. He was then dressed with Telfa and Tegaderm, awakened and taken to recovery in stable condition. Blood loss approximately 300 mL. COMPLICATIONS: None. TRANSINT:[id number] Voice Confirmation ID: [id number] DOCUMENT ID: [id number] BRIAN PLATT DO at 1315 CC: [id number] DICTATION DATE: 11/03/20 1006 SINGER SONGWRITER: 11/03/20 1853 ADM IN [facility] [address] [place] [address]
[2020-11-04 16:00] VITALS: BP 112/59
[2020-11-04 19:44] VITALS: BP 113/56
[2020-11-05 00:48] VITALS: BP 128/56
--- NOTE | 2020-11-05 01:13 | NUR ---
DRESSING IN PLACE TO LEFT HIP WITH MINIMAL BLOODY DRAINAGE NOTED. MEDICATED FOR PAIN. WILL CONTINUE TO MONITOR.
[2020-11-05 05:18] LABS: BASOPHILS 0.1 % (0-2); EOSINOPHILS 1.8 % (0-7); HEMATOCRIT 30.6 % (42.0-54.0); HEMOGLOBIN 10.2 g/dL (13.5-17.5); IMMATURE GRANULOCYTES 0.4 % (0-5); LYMPHOCYTE ABS# 1.24 10x3/uL (1.32-3.57); LYMPHOCYTES 11.7 % (15-50); MCH 31.7 pg (26.0-34.0); MCHC 33.3 g/dL (31.0-37.0); MEAN PLATELET VOLUME 9.5 fL (7.4-10.4); NEUTROPHIL ABS# 7.65 10x3/uL (1.78-5.38); PLATELET COUNT 167 10x3/uL (130-400); RBC 3.22 10x6/uL (4.20-6.10); RDW 14.6 % (11.5-14.5); WBC 10.6 10x3/uL (4.8-10.8)
[2020-11-05 05:44] LABS: ALBUMIN 2.2 g/dL (3.4-5.0); ALKALINE PHOSPHATASE 103 U/L (30-120); BILIRUBIN - TOTAL 0.64 mg/dL (0.2-1.3); CALC OSMOLALITY 260 mosm/kg (275-300); CALCIUM 7.7 mg/dL (8.5-10.1); CHLORIDE - SERUM 100 mmol/L (98-107); GLUCOSE 103 mg/dL (74-106); MAGNESIUM - SERUM 1.7 mg/dL (1.8-2.4); SODIUM 130 mmol/L (136-145); UREA NITROGEN 13 mg/dL (7-18); eGFR NON AFRICAN AMERICAN 76 mL/min (90-120)
[2020-11-05 05:47] LABS: ALT (SGPT) 69 U/L (10-68); CARBON DIOXIDE 24.9 mmol/L (21.0-32.0); POTASSIUM - SERUM 3.8 mmol/L (3.5-5.1)
[2020-11-05 08:36] VITALS: BP 135/69
--- NOTE | 2020-11-05 09:00 | NUR ---
PT RESTING QUIETLY IN BED. SITTING UP TALKING ON PHONE. RESP EVEN AND UNLABORED. O2 @ 2L NC IN PLACE. DENIES PAIN AT THIS TIME, BUT DOES VOICE "SOME PAIN WHEN UP". IV TO RIGHT FOREARM WITH 1/2NS @ 50ML/HR INFUSING VIA PUMP. SITE WITHOUT REDNESS OR EDEMA. F/C PATENT TO GRAVITY, DISCONTINUED AT THIS TIME PER MD ORDERS. 10ML SALINE REMOVED FROM BULB, BULB INTACT. PT ARGELIA WELL. DRESSING C/D/I TO LEFT HIP. DENIES FURTHER NEEDS AT THIS TIME. CL WITHIN REACH. URINAL AT BEDSIDE. ISP AT BEDSIDE AND UTILIZING. ENCOURAGED TO CALL WITH NEEDS. CONTINUE POC
--- NOTE | 2020-11-05 11:57 | MORECARE ---
CASE MANAGEMENT DISCHARGE SUMMARY PATIENT: SHERWIN PETERSON UNIT: [id number] ADM DATE: 11/02/20 AGE: 84 : 36 SEX: M ROOM/BED: D.2234 AUTHOR: DOROTHYDOC PHYSICIAN: REFERRING PHYSICIAN: INA COLUNGA MD DATE OF SERVICE: 11/05/20 Discharge Plan Patient Name: SHERWIN PETERSON [facility] [facility] 1935 Planned Disposition: Inpatient Rehab Anticipated Discharge Date: Discharge Date: Expected LOS: Initial Reviewer: [email or web address] Initial Review Date: 11/02/2020 Generated: 11/05/20 12:56 pm Comments DCP- Discharge Planning Updated by [email or web address]: Lala Seymour on 11/05/20 9:[address] Patient Name: SHERWIN PETERSON Admission Status: ER Accout number: [id number] Admission Date: 11-02-2020 : 1935 Admission Diagnosis: Attending: INA JEROME Current LOS: 3 Anticipated DC Date: Planned Disposition: Inpatient Rehab Primary Insurance: MEDICARE A & B Discharge Planning Comments: CM met with patient at bedside after obtaining verbal consent. CM discussed availability / needs of home health, REHAB and medical equipment. Patient states would like inpatient rehab before dc to home. Vivek signed for [facility] rehab. IMM explained, signed and placed on chart. Anticipate DC to rehab today. CM to follow and assist as needed. Strategic Communications Specialist: Lala Seymour DCPIA - Discharge Planning Initial Assessment Updated by [email or web address]: Lala Seymour on 11/05/20 11:52 am * Is the patient Alert and Oriented? Yes * PCP MALDONADO * Pharmacy [facility] * Preadmission Environment Home with Family * ADLs Independent * Equipment None * Community resources currently utilized None * Additional services required to return to the preadmission environment? Yes * Can the patient safely return to the preadmission environment? Yes * Has this patient been hospitalized within the prior 30 days at any hospital? No Coverage Notice Reviewer: [id number] - Lala Seymour Notice Issued Date-Time: 11/05/2020 11:53 Notice Type: IM Discharge Notice Notice Delivered To: Relationship to Patient: Seasonal Driver Name: Delivery Method: - Ana Days: Prior Verbal Notification: Recipient Understood Notice: Recipient Signature: Med Rec Note Co-signed by Attending: Coverage Notice Comment: Reviewer: [email or web address] Mone Seymour Notice Issued Date-Time: 11/05/2020 11:53 Notice Type: Patient Choice Letter Notice Delivered To: Relationship to Patient: Seasonal Driver Name: Delivery Method: - Ana Days: Prior Verbal Notification: Recipient Understood Notice: Recipient Signature: Med Rec Note Co-signed by Attending: Coverage Notice Comment: [facility] Patient Name: SHERWIN PETERSON Page [phone] at 1157 All edits/amendments must be made on the electronic document DICTATION DATE: 11/05/20 1156 ABRASIVE WATER JET CUTTER OPERATOR: MARLON 11/05/20 1156 RPT#: [id number] DC DATE: STATUS: ADM IN [facility] [address] [place] [address] END OF REPORT
[2020-11-05 12:26] VITALS: BP 105/66
[2020-11-05] MEDS ORDERED: ELIQUIS2.5 MG PO (15:04)
[2020-11-05] MEDS ORDERED: ACETAMINOPHEN325 MG PO (15:04)
[2020-11-05] MEDS ORDERED: Benadryl INJ IV (15:04)
[2020-11-05] MEDS ORDERED: PHENERGAN IM (15:04)
[2020-11-05] MEDS ORDERED: ASPIRIN81 MG PO (15:04)
[2020-11-05] MEDS ORDERED: ZOFRAN INJ IV (15:05)
[2020-11-05] MEDS ORDERED: HYDROCODON-ACE1 EAC7 PO (15:05)
[2020-11-05] MEDS ORDERED: DILAUDID INJ2 MG/ML IV (15:05)
[2020-11-05] MEDS ORDERED: HYDROCODON-ACE1 EA10 PO (15:05)
[2020-11-05] MEDS ORDERED: Narcan INJ IV (15:05)
[2020-11-05] MEDS ORDERED: COLACE100 MG PO (15:05)
[2020-11-05] MEDS ORDERED: ZOFRAN4 MG PO (15:06)
[2020-11-05] MEDS ORDERED: MIRALAX17 GM PO (15:06)
[2020-11-05] MEDS ORDERED: MULTI-DAY VITAM1 TAB PO (15:06)
== END 2020-11-05 16:32 | DRG 522 ==
LOC: D.ER 09:32 → D.MS 12:55 → D.EDHOLD 12:55 → D.MS 14:05
PROVIDERS: Emergency Medicine; ADMIT Family Medicine Adult Medicine; ATTEND Family Medicine Adult Medicine
PROC: 0SRB0JZ Replacement of Left Hip Joint with Synthetic Substitute, Open Approach (ICD-10-PCS; principal; 2020-11-02)
DX: S72.002A Fracture of unspecified part of neck of left femur, initial encounter for closed fracture (principal); W19.XXXA Unspecified fall, initial encounter; I25.10 Atherosclerotic heart disease of native coronary artery without angina pectoris; I50.9 Heart failure, unspecified; G47.00 Insomnia, unspecified; Z86.73 Personal history of transient ischemic attack (TIA), and cerebral infarction without residual deficits; Z85.46 Personal history of malignant neoplasm of prostate; F32.9 Major depressive disorder, single episode, unspecified

== ENCOUNTER 2020-11-05 15:21 | Inpatient (IN) | payer MEDICARE, BC ==
[~2020-11-05] VITALS: Ht 188 cm; Wt 89.8 kg
[~2020-11-05 15:21] MED LIST changes: +ACETAMINOPHEN325 MG PO; +ASPIRIN81 MG PO; +Benadryl INJ IV; +COLACE100 MG PO; +DILAUDID INJ2 MG/ML IV; +ELIQUIS2.5 MG PO; +HYDROCODON-ACE1 EA10 PO; +MIRALAX17 GM PO; +MULTI-DAY VITAM1 TAB PO; +Narcan INJ IV; +PHENERGAN IM; +ZOFRAN INJ IV; +ZOFRAN4 MG PO
[2020-11-05 17:25] VITALS: BP 123/62; BMI 25.4
--- NOTE | 2020-11-05 19:10 | NUR ---
RECIEVED PT SITTING UP IN BED RESTING QUIETLY. CL IN REACH. NO DISTRESS NOTED. EYES CLOSED AT THIS TIME. BED IN LOW SIDE RAILS X2. BED ALARM ON. RESP EVEN AND UNLABORED. A/O X4. CPOC
[2020-11-05 20:20] VITALS: BP 130/54
[2020-11-06 05:52] LABS: BASOPHILS 0.1 % (0-2); EOSINOPHILS 1.8 % (0-7); HEMATOCRIT 30.3 % (42.0-54.0); HEMOGLOBIN 10.2 g/dL (13.5-17.5); IMMATURE GRANULOCYTES 0.5 % (0-5); LYMPHOCYTE ABS# 1.14 10x3/uL (1.32-3.57); LYMPHOCYTES 11.9 % (15-50); MCH 31.9 pg (26.0-34.0); MCHC 33.7 g/dL (31.0-37.0); MCV 94.7 fL (80.0-100.0); MEAN PLATELET VOLUME 9.5 fL (7.4-10.4); MONOCYTES 14.9 % (2-11); NEUTROPHIL ABS# 6.81 10x3/uL (1.78-5.38); NEUTROPHILS 70.8 % (40-80); PLATELET COUNT 181 10x3/uL (130-400); RDW 14.4 % (11.5-14.5); WBC 9.6 10x3/uL (4.8-10.8)
[2020-11-06 06:16] LABS: ANION GAP 8.3 mmol/L (8-16); CALCIUM 8.1 mg/dL (8.5-10.1); CARBON DIOXIDE 28.2 mmol/L (21.0-32.0); CREATININE - SERUM 1.2 mg/dL (0.6-1.3); POTASSIUM - SERUM 3.5 mmol/L (3.5-5.1)
[2020-11-06 08:00] VITALS: BP 129/60
--- NOTE | 2020-11-06 08:00 | NUR ---
SHIFT ASSMT COMPLETED.CL IN REACH.
--- NOTE | 2020-11-06 12:00 | NUR ---
DENIES NEEDS.CL IN REACH.EATING LUNCH.
[2020-11-06 14:16] VITALS: Ht 188 cm; Wt 89.8 kg
--- NOTE | 2020-11-06 19:12 | NUR ---
RECIEVED PT SITTING UP IN BED. CL IN REACH. DENIES NEEDS AT THIS TIME. BED IN LOW SIDE RAILS X2. A/O X4. LUNGS CLEAR. BOWEL ACTIVE X4. O2 ON 2L VIA NC. RESP EVEN AND UNLABORED. BED ALARM ON. CPOC
[2020-11-06 20:34] VITALS: BP 115/51
--- NOTE | 2020-11-07 04:52 | NUR ---
I have reviewed this patient and I concur with the Shift Assessment completed by the Licensed Practical Nurse today this shift.
[2020-11-07 06:52] LABS: BASOPHILS 0.2 % (0-2); EOSINOPHILS 1.9 % (0-7); HEMATOCRIT 31.1 % (42.0-54.0); HEMOGLOBIN 10.2 g/dL (13.5-17.5); IMMATURE GRANULOCYTES 0.5 % (0-5); LYMPHOCYTE ABS# 1.52 10x3/uL (1.32-3.57); LYMPHOCYTES 17.4 % (15-50); MCH 31.3 pg (26.0-34.0); MCHC 32.8 g/dL (31.0-37.0); MCV 95.4 fL (80.0-100.0); MEAN PLATELET VOLUME 9.7 fL (7.4-10.4); NEUTROPHIL ABS# 5.85 10x3/uL (1.78-5.38); RBC 3.26 10x6/uL (4.20-6.10); RDW 14.3 % (11.5-14.5); WBC 8.7 10x3/uL (4.8-10.8)
[2020-11-07 06:59] LABS: PLATELET COUNT 222 10x3/uL (130-400)
[2020-11-07 07:03] LABS: CALC OSMOLALITY 262 mosm/kg (275-300); CALCIUM 8.4 mg/dL (8.5-10.1); CHLORIDE - SERUM 97 mmol/L (98-107); GLUCOSE 102 mg/dL (74-106); POTASSIUM - SERUM 3.8 mmol/L (3.5-5.1); SODIUM 130 mmol/L (136-145); UREA NITROGEN 18 mg/dL (7-18); eGFR NON AFRICAN AMERICAN 76 mL/min (90-120)
[2020-11-07 08:00] VITALS: BP 120/68
--- NOTE | 2020-11-07 08:00 | NUR ---
SHIFT ASSMT COMPLETED.CL IN REACH.BREAKFAST GIVEN/
--- NOTE | 2020-11-07 10:57 | NUR ---
PATIENT ADMITTS TO REHB FROM ACUTE FLOOR. DISCHARGE PLANS ARE FOR HIM TO RETURN TO HIS HOME. HIS PCP IS DR. MALDONADO. WILL CONTINUE TO FOLLOW WITH PATIENT.
--- NOTE | 2020-11-07 12:00 | NUR ---
SITTING UP ON SIDE OF BED EATING LUNCH.
--- NOTE | 2020-11-07 13:59 | NUR ---
CARE TEAM MEETING: PATIENT IS NEW TO UNIT AND WILL BE RA AT NEXT MEETING. WILL CONTINUE TO FOLLOW WITH PATIENT.
--- NOTE | 2020-11-07 18:50 | NUR ---
BEDSIDE REPORT COMPLETE. RECEIVED PT SITTING UP IN BED, ALERT AND ORIENTED X4. DENIES ANY NEEDS OR PAIN. LEFT HIP OP SITE DRESSING INTACT WITH SCANT AMOUNT OF DRIED BLOODY DRAINAGE, DRAINAGE HAS BEEN MARKED AND HAS NOT EXCEEDED OUT OF MARKED PERIAMETER. LEFT UPPER ARM DRESSING INTACT WITHOUT DRAINAGE, PER REPORT DRESSING IS R/T PT HAVING A SKIN TEAR. URINAL WITHIN REACH. NO IV OR OXYGEN NOTED. CALL LIGHT WITHIN REACH. FALL PRECAUTIONS IN PLACE. CPOC
[2020-11-07 21:34] VITALS: BP 119/55
--- NOTE | 2020-11-07 23:47 | NUR ---
PT LYING IN BED ON RIGHT SIDE EYES CLOSED RESTING. RR EVEN AND UNLABORED. CALL LIGHT WITHIN REACH. CPOC
--- NOTE | 2020-11-08 03:15 | NUR ---
PT LYING IN BED EYES CLOSED RESTING. RR EVEN AND UNLABORED. 400ML EMPTIED FROM URINAL. CALL LIGHT WITHIN REACH.
--- NOTE | 2020-11-08 04:00 | NUR ---
LEFT HIP OPSITE DRESSING REMOVED PER DRSG CHANGE ORDERS. TAPE CLOSURE WAS ADHERED TO DRESSING, INCISION SITE WITHOUT REDNESS OR SWELLING. SMALL OPEN AREA AT PROXIMAL AND DISTAL END OF INCISION. CLEANSED SITE WITH NS, PATTED DRY WITH 4X4, SWABBED WITH BETADINE LET DRY, APPLIED STERI STRIPS X6 ALONG INCISION LINE AND COVERED WITH ISLAND DRESSING. DATE, TIMED, AND INITIALED. PT TOLERATED WELL.
--- NOTE | 2020-11-08 05:48 | NUR ---
PT IN ROOM PARTICIPATING IN PHYSICAL THERAPY WITH PRICILA. NO DISTRESS NOTED. O2 SAT 96% ON ROOM AIR AFTER WALKING FROM RESTROOM.
[2020-11-08 08:00] VITALS: BP 111/57
--- NOTE | 2020-11-08 10:06 | NUR ---
HAS BEEN UP WORKING WITH THERAPY. PRESENTLY RESTING QUIETLY IN BED. DENIES NEEDS OR C/O. CALL LIGHT IN REACH
--- NOTE | 2020-11-08 13:25 | NUR ---
LAYING DOWN IN BED RESTING QUIETLY. EYES CLOSED. NO S/S DISTRESS. CALL LIGHT IN REACH
--- NOTE | 2020-11-08 18:50 | NUR ---
BEDSIDE REPORT COMPLETE. RECEIVED PT LYING IN BED AWAKE. ALERT AND ORIENTED X4. LEFT HIP DRESSING C/D/I DATED 11/08/20 TC. HEELS BRIDGED. DENIES ANY PAIN OR NEEDS. NO OXYGEN OR IV NOTED. CALL LIGHT AND URINAL WITHIN REACH. JOE ALARM ON. CPOC
[2020-11-08 19:58] VITALS: BP 122/50
--- NOTE | 2020-11-09 00:40 | NUR ---
PT LYING IN BED SUPINE EYES CLOSED RESTING. HOB ELEVATED. RR EVEN AND UNLABORED. CALL LIGHT AND URINAL WITHIN REACH. CPOC
--- NOTE | 2020-11-09 03:05 | NUR ---
PT LYING IN BED SUPINE EYES CLOSED RESTING. RR EVEN AND UNLABORED. CALL LIGHT WITHIN REACH
--- NOTE | 2020-11-09 05:13 | NUR ---
ASSISTED TO RESTROOM AND BACK WITH MIN ASSIST. VOID ONLY. DENIES ANY NEEDS OR PAIN. NO ACUTE CHANGES IN CONDITION THIS SHIFT. CALL LIGHT WITHIN REACH.
[2020-11-09 05:48] LABS: BASOPHILS 0.3 % (0-2); EOSINOPHILS 2.6 % (0-7); HEMATOCRIT 33.5 % (42.0-54.0); HEMOGLOBIN 11.1 g/dL (13.5-17.5); IMMATURE GRANULOCYTES 0.7 % (0-5); LYMPHOCYTE ABS# 1.96 10x3/uL (1.32-3.57); LYMPHOCYTES 20.7 % (15-50); MCH 31.4 pg (26.0-34.0); MCHC 33.1 g/dL (31.0-37.0); MCV 94.9 fL (80.0-100.0); MEAN PLATELET VOLUME 9.9 fL (7.4-10.4); MONOCYTES 11.2 % (2-11); NEUTROPHILS 64.5 % (40-80); RBC 3.53 10x6/uL (4.20-6.10); RDW 14.1 % (11.5-14.5); WBC 9.5 10x3/uL (4.8-10.8)
[2020-11-09 05:49] LABS: PLATELET COUNT 319 10x3/uL (130-400)
[2020-11-09 06:19] LABS: CALCIUM 8.6 mg/dL (8.5-10.1); CARBON DIOXIDE 28.4 mmol/L (21.0-32.0); POTASSIUM - SERUM 3.4 mmol/L (3.5-5.1)
[2020-11-09 06:22] LABS: CREATININE - SERUM 1.3 mg/dL (0.6-1.3)
[2020-11-09 08:00] VITALS: BP 120/66
--- NOTE | 2020-11-09 12:05 | NUR ---
SITTING ON SIDE OF BED FOR LUNCH. DENIES NEEDS OR C/O. CALL LIGHT IN REACH.
--- NOTE | 2020-11-09 20:00 | NUR ---
AWAKE AND ALERT. RESTING IN BED WITH RESPIRATIONS UNLABORED. LEFT HIP DRESSING INTACT. STERISTRIPS INTACT TO LEFT ELBOW SKIN TEAR. NO ACUTE DISTRESS NOTED. CALL LIGHT IN REACH.
[2020-11-09 20:03] VITALS: BP 118/53
--- NOTE | 2020-11-10 05:28 | NUR ---
QUIET HOURS. NO ACUTE CHANGES IN CONDITION THIS SHIFT. RESTING IN BED WITH NO DISTRESS NOTED.
--- NOTE | 2020-11-10 08:00 | NUR ---
SHIFT ASSMT COMPLETED.
[2020-11-10 08:18] VITALS: BP 120/74
[2020-11-10 19:00] VITALS: BP 120/48
--- NOTE | 2020-11-10 19:18 | NUR ---
AWAKE AND ALERT. RESTING IN BED WITH RESPIRAITONS UNLABORED. NO DISTRESS NOTED. NO NEEDS VOICED.
--- NOTE | 2020-11-11 05:04 | NUR ---
QUIET HOURS. NO ACUTE CHANGES IN CONDITION THIS SHIFT. RESTING IN BED WITH NO DISTRESS NOTED.
--- NOTE | 2020-11-11 08:00 | NUR ---
SHIFT ASSMT COMPLETED.
[2020-11-11 08:48] VITALS: BP 129/48
--- NOTE | 2020-11-11 16:00 | NUR ---
AMBULATED IN HALLS X2 TODAY.DENIES NEEDS.
[2020-11-11 19:00] VITALS: BP 111/54
--- NOTE | 2020-11-11 19:27 | NUR ---
AWAKE AND ALERT. RESTING IN BED WITH RESPRIATIONS UNLABORED. NO DISTRESS NOTED. CALL LIGHT IN REACH.
--- NOTE | 2020-11-12 01:33 | NUR ---
RESTING IN BED WITH RESPIRATIONS UNLABORED. NO DISTRESS NOTED.
--- NOTE | 2020-11-12 05:06 | NUR ---
QUIET HOURS. NO ACUTE CHANGES IN CONDITION THIS SHIFT. RESTING IN BED WITH NO DISTRESS NOTED.
[2020-11-12 07:27] LABS: BASOPHILS 0.3 % (0-2); EOSINOPHILS 2.2 % (0-7); HEMATOCRIT 31.2 % (42.0-54.0); HEMOGLOBIN 10.3 g/dL (13.5-17.5); IMMATURE GRANULOCYTES 1.4 % (0-5); LYMPHOCYTE ABS# 1.67 10x3/uL (1.32-3.57); LYMPHOCYTES 17.5 % (15-50); MCH 31.6 pg (26.0-34.0); MCV 95.7 fL (80.0-100.0); MEAN PLATELET VOLUME 9.4 fL (7.4-10.4); MONOCYTES 12.4 % (2-11); NEUTROPHIL ABS# 6.33 10x3/uL (1.78-5.38); NEUTROPHILS 66.2 % (40-80); PLATELET COUNT 363 10x3/uL (130-400); RBC 3.26 10x6/uL (4.20-6.10); RDW 14.3 % (11.5-14.5); WBC 9.6 10x3/uL (4.8-10.8)
--- NOTE | 2020-11-12 07:31 | NUR ---
ALERT AND ORIENTED. ASSESSMENT COMPLETE. DENIES NEEDS. BED LOW. CALL ELIZABETH AND PERSONAL ITEMS IN REACH. WILL CONTINUE TO MONITOR.
[2020-11-12 07:38] LABS: ANION GAP 8.4 mmol/L (8-16); CALCIUM 8.8 mg/dL (8.5-10.1); CARBON DIOXIDE 28.5 mmol/L (21.0-32.0); CREATININE - SERUM 1.3 mg/dL (0.6-1.3); POTASSIUM - SERUM 3.9 mmol/L (3.5-5.1)
[2020-11-12 07:47] VITALS: BP 107/50
--- NOTE | 2020-11-12 10:43 | NUR ---
Nutrition Re-Assessment Diet: Cardiac PO intake: 100% Last BM: 11/11/20 Wt: 198# (11/06/20) Meds noted: K-dur, miralax, MVI, probiotics, HCTZ Labs noted: Na 131(L), Glu 111(H) Estimated nutrition needs and nutrition diagnosis remain unchanged from initial nutrition assessment at this time Patient is currently meeting nutrition goals at this time. Recommendations/Interventions: -Will continue Cardiac diet. Will continue to honor food preferences within diet restrictions. -RD will continue to monitor PO Intake and wt trend. -RD will follow-up within 7 days.
--- NOTE | 2020-11-12 17:51 | NUR ---
SITTING UP ON SIDE OF BED. FAMILY IN ROOM. DENIES NEEDS. WILL CONTINUE TO MONITOR.
--- NOTE | 2020-11-12 18:47 | NUR ---
BEDSIDE REPORT COMPLETE. RECEIVED PT SITTING UP IN BED, ALERT AND ORIENTED X4. DENIES ANY PAIN OR NEEDS. LEFT HIP INCISION WITH STERI STRIPS INTACT. NO DRAINAGE, REDNESS OR SWELLING NOTED. LEFT ELBOW DRESSING C/D/I. CALL LIGHT AND URINAL WITHIN REACH. FALL PRECAUTIONS IN PLACE. CPOC
[2020-11-12 19:09] VITALS: BP 131/50
--- NOTE | 2020-11-13 00:32 | NUR ---
PT LYING IN BED SUPINE EYES CLOSED RESTING. HOB ELEVATED. RR EVEN AND UNLABORED. CALL LIGHT WITHIN REACH.
--- NOTE | 2020-11-13 01:24 | NUR ---
PT CALLED REQUESTING ASSISTANCE TO RESTROOM. SUPERVISION NEEDED ONLY. PT ABLE TO WALK TO RESTROOM WITH WALKER. STEADY GAIT NOTED. NO OTHER NEEDS VOICED. DENIES ANY PAIN. PT BACK IN BED WITH HOB ELEVATED. JOE ALARM ON
--- NOTE | 2020-11-13 02:43 | NUR ---
PT CALLED NEEDING RESTROOM. SUPERVISED PT WALKING TO RESTROOM USING WALKER. STEADY GAIT. DENIES ANY OTHER NEEDS OR PAIN. NO DISTRESS NOTED.
--- NOTE | 2020-11-13 04:25 | RHP ---
PATIENT: SHERWIN PETERSON MEDICAL RECORD: [id number] ACCOUNT: [id number] LOCATION:[facility] : 37 ADMISSION DATE: 11/05/20 REHABILITATION HISTORY AND PHYSICAL EXAMINATION POST ADMISSION PHYSICIAN EXAMINATION POST ADMISSION PHYSICAL EXAMINATION AND HISTORY AND PHYSICAL ADMITTING DIAGNOSIS: Left femoral subcapital fracture. HISTORY OF PRESENT ILLNESS: The patient was admitted secondary to left femoral subcapital fracture, status post left total hip arthroscopy on 11/03/2020. He is an 84-year-old gentleman who apparently fell at home and broke his hip. The patient has no alcohol or tobacco use. He did have an acute transaminitis. Upon admission, he was placed on the electrolyte protocol, DVT and GI prophylaxis. He is postop day #4. His transaminases are trending back down. We will continue to follow these on the rehab. Prior to this, he was independent with ADLs and ambulation. He lives with his where he does have one step to navigate to get into the house. Currently, min to max assist with his ADLs and max assist with ambulation. He has only walked 3 feet so far with a rolling walker. He will require intensive therapy to return back to his prior level of functioning. Barriers for discharge include lab values, his cognition, medication adjustments, pain control, decreased activity tolerance, decreased strength, balance deficits, decreased range of motion, gait disturbance and impaired mobility and dyspnea on exertion. He is also a high fall risk. COMORBIDITIES: In this patient include coronary artery disease, cardiomyopathy, congestive heart failure, COPD, falls, peripheral vascular disease. PAST MEDICAL HISTORY: Significant for arthritis, depression, insomnia, gastroesophageal reflux disease, got a history of prostate cancer, peripheral vascular disease, CHF, coronary artery disease. He is hard of hearing. He has had TIAs in the past. PAST SURGICAL HISTORY: Includes gallbladder, hernia, appendectomy, prostatectomy. He has had a cyst removed. He has had cardiac stents, knee scopes and he had a right total knee replacement. ALLERGIES: KEFLEX AND DOXYCYCLINE. CURRENT MEDICATIONS: Include MiraLax 17 grams in 8 ounces of water daily and multivitamin tabs daily. He is on lactobacillus 1 tab daily, hydrochlorothiazide 25 mg daily, glucosamine 1500 mg daily, citalopram 20 mg daily, aspirin chewable 81 mg daily, Protonix 40 mg b.i.d., Singulair 10 mg at bedtime, Flonase nasal spray daily, Colace 100 mg b.i.d., Eliquis 2.5 mg b.i.d. He is on [place] 10/325 one tab q.4 hours p.r.n., Zofran 4 mg q.4 hours p.r.n. nausea and vomiting. He is on Ventolin updrafts and Tylenol p.r.n. HABITS: Once again no alcohol or tobacco use. FAMILY HISTORY: Noncontributory. SOCIAL HISTORY: The patient hopes to return back home and get back to his prior level of functioning. HISTORY AND PHYSICAL [id number] SHERWIN PETERSON REVIEW OF SYSTEMS: GENERAL: He does complain of some weakness and fatigue. HEENT: Denies cold, cough or congestion. CARDIOVASCULAR: Denies any chest pain. PHYSICAL EXAMINATION: VITAL SIGNS: Stable, afebrile. GENERAL: An elderly gentleman, who is in no acute distress, alert upon exam. HEENT: Normocephalic and atraumatic. Mucosa moist. NECK: Supple with no lymphadenopathy. LUNGS: Clear in upper allen. No wheezing or rales. HEART: Regular rate and rhythm. No murmurs, rubs or gallops. ABDOMEN: Soft, benign, nondistended. Positive bowel sounds times 4. EXTREMITIES: No clubbing, cyanosis or edema. His postoperative area looks pretty good. NEUROLOGIC: He does have some weakness, especially in his trunk muscles and proximal muscles of his legs. LABORATORY DATA: His white count is 9.6, H&H of 10 and 30, and platelet count is noted to be 181. His sodium is 130, potassium 3.5, BUN and creatinine of 17 and 1.2, and blood sugar was noted to be 104. ASSESSMENT: This is an 84-year-old gentleman admitted to the rehab with a working diagnosis of a left femoral fracture, status post hemiarthroplasty. The patient has potential to make improvement. We instituted the following multidisciplinary therapies including, not limited to physical, occupational, respiratory, speech, nutritional services, prosthetics and orthotics. Given his complex medical condition and risks for more complications, rehabilitation services cannot be provided at a low level of care such as senior living facility. PLAN: 1. Admit to [facility] for inpatient therapy to include the following disciplines; A. Physical therapy to improve gait, all transfer skills and bed mobility to a modified independent level. B. Occupational therapy to improve activities of daily living. C. Case management to help with discharge planning and placement options. D. Nutrition to assist with nutritional needs. E. Rehabilitation nursing to assist in monitoring the patient's underlying medical conditions and to assist with any type of bowel or bladder management. 2. The patient's current medication and medical care will be continued. 3. Will be placed on standard fall precautions. 4. The patient's estimated length of stay is approximately 7-10 days. 5. We will discuss this patient during care team staff meeting this week. TRANSINT:[id number] Voice Confirmation ID: [id number] DOCUMENT ID: [id number] KENNEY notes whether there has been none or any medical/functional change since admission: - No change since preadmission screen. KENNEY attests patient continues to be appropriate for IRF: HISTORY AND PHYSICAL [id number] SHERWIN PETERSON - Continues to be appropriate. QUIANA CARNES MD at 0425 CC: [id number] DICTATION DATE: 11/06/20 1241 [employer] ADVISER: 11/06/[address] [facility] [address] [id number]
--- NOTE | 2020-11-13 05:14 | NUR ---
PT SITTING UP IN W/C AWAKE. DENIES ANY NEEDS OR PAIN. NO DISTRESS NOTED. CALL LIGHT WITHIN REACH. FALL PRECAUTIONS IN PLACE. CPOC
[2020-11-13 07:55] VITALS: BP 107/68
--- NOTE | 2020-11-13 10:47 | NUR ---
HAS BEEN UP WORKING WITH THERAPY. INCISION TO LEFT HIP INTACT WITH STERI STRIPS TO INCISION. NO S/S INFECTION.
--- NOTE | 2020-11-13 14:23 | NUR ---
DSG REMOVED FROM LEFT ELBOW. FULL SCAB NOTED. NO DRAINAGE NOTED. BAND AID APPLIED TO PROTECT SCAB. NO S/S INFECTION.
--- NOTE | 2020-11-13 18:44 | NUR ---
BEDSIDE REPORT COMPLETE. RECEIVED PT SITTING UP IN BED, ALERT AND ORIENTED X4. DENIES ANY NEEDS OR PAIN. LEFT HIP STERI STRIPS INTACT. NO DRAINAGE, REDNESS OR SWELLING NOTED. INCISION OPEN TO AIR. NO IV OR OXYGEN NOTED. NO DISTRESS NOTED. CALL LIGHT AND WATER WITHIN REACH. FALL PRECAUTIONS IN PLACE. CPOC
[2020-11-13 20:00] VITALS: BP 124/52
--- NOTE | 2020-11-13 23:41 | NUR ---
PT LYING IN BED SUPINE EYES CLOSED RESTING. RR EVEN AND UNLABORED. CALL LIGHT WITHIN REACH
[2020-11-14] MEDS ORDERED: K-DUR20 MEQ PO (02:04)
--- NOTE | 2020-11-14 03:01 | NUR ---
SUPERVISED PT USING WALKER TO RESTROOM AND BACK TO BED. VOID ONLY. DENIES ANY OTHER NEEDS OR PAIN. NO DISTRESS NOTED. CALL LIGHT WITHIN REACH.
[2020-11-14 07:14] LABS: ANION GAP 7.5 mmol/L (8-16); CALCIUM 8.4 mg/dL (8.5-10.1); CARBON DIOXIDE 31.4 mmol/L (21.0-32.0); CREATININE - SERUM 1.2 mg/dL (0.6-1.3); POTASSIUM - SERUM 3.9 mmol/L (3.5-5.1)
[2020-11-14 07:41] VITALS: BP 124/55
--- NOTE | 2020-11-14 09:48 | NUR ---
PATIENT DISCHARGING HOME WITH FAMILY TODAY . [facility] WILL PROVIDE THERAPY AT HOME. [facility] WILL FOLLOW WITH PATIENT AND HE WILL SEE DR. MALDONADO NEEDED. [facility] HAS DELIVERED A SHOWER CHAIR . DR. PLATT 11/21/20 @ 8:40. LORY SINGED, IMM SERVED AND EXPLAINED. ONE GIVEN TO PATIENT AND ONE FILED IN CHART. COMPARE DATA REVIEWED AND PATIENT VOICED UNDERSTANDING. DC INSTUCTIONS FAXED TO PCP, [facility], [facility] AND REVIEWED WITH PATIENT.
== END 2020-11-14 11:00 | disposition home health service (06) | DRG 560 ==
LOC: D.REHAB 15:21
PROVIDERS: ADMIT Emergency Medicine; ATTEND Emergency Medicine
DX: S72.012D Unspecified intracapsular fracture of left femur, subsequent encounter for closed fracture with routine healing (principal); I42.9 Cardiomyopathy, unspecified; W19.XXXD Unspecified fall, subsequent encounter; I25.10 Atherosclerotic heart disease of native coronary artery without angina pectoris; I50.9 Heart failure, unspecified; J44.9 Chronic obstructive pulmonary disease, unspecified; I73.9 Peripheral vascular disease, unspecified; R26.9 Unspecified abnormalities of gait and mobility

== ENCOUNTER → 2021-01-22 11:15 | Outpatient (CLI) | payer MEDICARE, BC ==
[2020-11-06 14:16] VITALS: BMI 25.4
[~2021-01-22 11:15] MED LIST changes: +K-DUR20 MEQ PO
== END | disposition home or self-care (01) ==
LOC: D.CT 11:15
PROVIDERS: ATTEND Thoracic Surgery (Cardiothoracic Vascular Surgery)
DX: I71.4 Abdominal aortic aneurysm, without rupture (principal)

== ENCOUNTER 2021-02-08 15:12 | Inpatient (IN) | payer MEDICARE, BC ==
[~2021-02-08] VITALS: Ht 188 cm; Wt 92.1 kg
[2021-02-08] VITALS (7 sets, daily range): BP systolic 107–147; BP diastolic 40–68
[2021-02-08] MEDS ORDERED: PLAVIX75 MG PO (15:40)
--- NOTE | 2021-02-08 16:20 | NUR ---
CONSENTS FOR PROCEDURE, ANESTHESIA, AND BLOOD TRANSFUSION OBTAINED.
[2021-02-08 17:00] LABS: BASOPHILS 0.2 % (0-2); EOSINOPHILS 0.4 % (0-7); HEMATOCRIT 38.9 % (42.0-54.0); HEMOGLOBIN 12.7 g/dL (13.5-17.5); LYMPHOCYTES 11.1 % (15-50); MCH 30.5 pg (26.0-34.0); MCHC 32.7 g/dL (31.0-37.0); MCV 93.2 fL (80.0-100.0); MONOCYTES 12.8 % (2-11); NEUTROPHILS 75.5 % (40-80); RBC 4.17 10x6/uL (4.20-6.10); RDW 15.8 % (11.5-14.5)
[2021-02-08 17:02] LABS: BACTERIA FEW HPF (<MOD); BILIRUBIN NEGATIVE (NEGATIVE); KETONE TRACE mg/dL (< 1+); NITRITE NEGATIVE (NEGATIVE); PH 5.5 (5.0-8.0); SQUAMOUS EPITHELIAL 1 HPF (0-4); UROBILINOGEN 2 mg/dL (< 2); WHITE CELLS - URINE 1 HPF (0-1)
[2021-02-08 17:04] LABS: ANION GAP 10.2 mmol/L (8-16); CALCIUM 8.7 mg/dL (8.5-10.1); CARBON DIOXIDE 26.5 mmol/L (21.0-32.0); CREATININE - SERUM 1.2 mg/dL (0.6-1.3); POTASSIUM - SERUM 3.7 mmol/L (3.5-5.1)
[2021-02-08 17:06] LABS: PLATELET COUNT 184 10x3/uL (130-400)
[2021-02-08 17:11] LABS: ALBUMIN 2.9 g/dL (3.4-5.0); BILIRUBIN - TOTAL 0.49 mg/dL (0.2-1.3); INR 1.29 (0.85-1.17); PROTEIN - SERUM 7.5 g/dL (6.4-8.2); PROTIME 14.9 SECONDS (11.6-15.0)
[2021-02-08 17:12] LABS: APTT 38.6 SECONDS (22.8-39.4)
--- NOTE | 2021-02-08 18:00 | NUR ---
DR. SARAVIA AT BEDSIDE. EXPLAINED PROCEDURE.
--- NOTE | 2021-02-08 18:30 | NUR ---
REPORT CALLED TO LINN RAMOS, [facility].
--- NOTE | 2021-02-08 18:59 | NUR ---
REC'D PT TO CV06. ALL MONITORING EQUIPMENT ATTACHED AND ALARMS SET.
[2021-02-09] VITALS (10 sets, daily range): BP systolic 103–129; BP diastolic 49–67; Ht 188 cm; Wt 92.1 kg
[2021-02-09 01:33] LABS: CKMB 0.8 U/L (0.0-3.6); CREATINE KINASE 24 UL (21-232); MAGNESIUM - SERUM 1.8 mg/dL (1.8-2.4); TROPONIN-I < 0.017 ng/mL (0.000-0.060)
[2021-02-09 04:56] LABS: BASOPHILS 0.3 % (0-2); EOSINOPHILS 1.8 % (0-7); HEMATOCRIT 33.9 % (42.0-54.0); HEMOGLOBIN 11.2 g/dL (13.5-17.5); LYMPHOCYTES 14.9 % (15-50); MCH 30.9 pg (26.0-34.0); MCHC 33.1 g/dL (31.0-37.0); MCV 93.4 fL (80.0-100.0); MEAN PLATELET VOLUME 8.5 fL (7.4-10.4); MONOCYTES 13.5 % (2-11); NEUTROPHILS 69.5 % (40-80); PLATELET COUNT 164 10x3/uL (130-400); RBC 3.63 10x6/uL (4.20-6.10); RDW 16.1 % (11.5-14.5)
[2021-02-09 05:03] LABS: WBC 8.6 10x3/uL (4.8-10.8)
[2021-02-09 05:16] LABS: ALBUMIN 2.2 g/dL (3.4-5.0); ALKALINE PHOSPHATASE 84 U/L (30-120); BILIRUBIN - TOTAL 0.75 mg/dL (0.2-1.3); CALC OSMOLALITY 267 mosm/kg (275-300); CALCIUM 8.3 mg/dL (8.5-10.1); CARBON DIOXIDE 23.3 mmol/L (21.0-32.0); CHLORIDE - SERUM 104 mmol/L (98-107); CREATININE - SERUM 0.9 mg/dL (0.6-1.3); GLUCOSE 93 mg/dL (74-106); MAGNESIUM - SERUM 1.9 mg/dL (1.8-2.4); PROTEIN - SERUM 6.5 g/dL (6.4-8.2); SODIUM 134 mmol/L (136-145); UREA NITROGEN 13 mg/dL (7-18); eGFR NON AFRICAN AMERICAN 85 mL/min (90-120)
[2021-02-09 05:19] LABS: ALT (SGPT) 19 U/L (10-68); POTASSIUM - SERUM 5.1 mmol/L (3.5-5.1)
--- NOTE | 2021-02-09 09:20 | NUR ---
RADIOLOGIST CALLED TO SAY ALTHOUGH THE READOUT FOR [facility]A DOES NOT SHOW PE, HE DOES HAVE A RLL PE. DR. SARAVIA NOTIFIED. ORDERS RECEIVED. DR. VEGA, O/C FOR DR. ZIMMERMAN IS NOTIFIED. DR. SINGLETON IS TO BE CONSULTED. DR. SARAVIA SAYS OK TO ANTICOAGULATE FROM HIS STANDPOINT.
--- NOTE | 2021-02-09 09:31 | NUR ---
DR. SINGLETON CONSULTED AND WILL BE HERE SHORTLY.
--- NOTE | 2021-02-09 10:09 | NUR ---
DR. MANI CLEMENS. ORDERS RECEIVED.
[2021-02-09] MEDS ORDERED: ELIQUIS5 MG PO (12:01)
[2021-02-09] MEDS ORDERED: AZITHROMYCIN500 MG PO (12:03)
--- NOTE | 2021-02-09 13:53 | NUR ---
DR. COBIAN NOTIFIED OF DVT. OK'S GOING HOME ON THE ELIQUIS.
--- NOTE | 2021-02-09 14:41 | NUR ---
BOTH PIVS REMOVED, TIP INTACT. PT DRESSED AND ESCORTED TO CAR VIA WHEELCHAIR BY ME.
--- NOTE | 2021-02-09 19:33 | MORECARE ---
CASE MANAGEMENT DISCHARGE SUMMARY PATIENT: SHERWIN PETERSON UNIT: [id number] ADM DATE: 02/08/21 AGE: 85 : 36 SEX: M ROOM/BED: D.06 AUTHOR: DOROTHY,DOC PHYSICIAN: REFERRING PHYSICIAN: MARCK ZIMMERMAN DO DATE OF SERVICE: 02/09/21 Case Management Discharge Planning Summary COMMENTS ENTERED DATE: 02/09/21 19:28 CT COMMENT TYPE: Discharge Planning REVIEWER: Marlene Rodriguez CM spoke with patient to discuss discharge plan of home with resumption of home health services with [facility]. Patient stated he lives with his , Nevin, . Nevin will provide transportation for patient after discharge. Patient states he has a walker, cane, wheelchair, bedside commode and no stairs. IMM also signed, placed in chart and copy provided to patient. CM will continue to follow. DCP REVIEW SUMMARY ANTICIPATED D/C DATE: 02/09/2021 EXPECTED LOS : 1 CASE STATUS: DCP Complete INITIAL REVIEW: 02/08/2021 INITIAL REVIEWER: Marlene Rodriguez FINAL DISCHARGE DISPOSITION: : FINAL REVIEWER: FINAL REVIEW DATE: DCP Focus Questions & Answers DCP Screen QUESTION: ANSWER High Risk Factors: : None Walking limitation: Patient stated self rated walking limitation present? : No Age: : 81 + Prior living environment: : Lives with others Disability ranking: : Grade 2: Slight disability DCP Evaluation QUESTION: ANSWER Patient's ability to cope with chronic illness : d. No chronic illness Would patient like to participate in any Care Coordination programs (if applicable): : Not applicable Mental health screen: : No mental health history DCP Re-evaluation QUESTION: ANSWER Would patient like to participate in any Care Coordination programs (if applicable): : Not applicable PATIENT: SHERWIN PETERSON ENCOUNTER: [id number] MEDICAL RECORD#: [id number] ADMISSION DATE: 02/08/2021 DISCHARGE DATE: 02/09/2021 ATTENDING MD: MARCK SIERRA : AGE: 85 MARITAL STATUS: M DC PLAN ID: [id number] FACILITY: [facility] PRINTED ON: 02/09/21 19:33 CT All edits/amendments must be made on the electronic document DICTATION DATE: 02/09/211932 LOSS MITIGATION SPECIALIST: MARLON 02/09/211932 RPT#: [id number] DC DATE:02/09/21 STATUS: DIS IN [facility] [address] [place] [address] END OF REPORT
--- NOTE | 2021-02-11 15:31 | MORECARE ---
CASE MANAGEMENT DISCHARGE SUMMARY PATIENT: SHERWIN PETERSON UNIT: [id number] ADM DATE: 02/08/21 AGE: 85 : 36 SEX: M ROOM/BED: D.06 AUTHOR: DOROTHY,DOC PHYSICIAN: REFERRING PHYSICIAN: MARCK ZIMMERMAN DO DATE OF SERVICE: 02/11/21 Case Management Discharge Planning Summary COMMENTS ENTERED DATE: 02/09/21 19:28 CT COMMENT TYPE: Discharge Planning REVIEWER: Marlene Rodriguez CM spoke with patient to discuss discharge plan of home with resumption of home health services with [facility]. Patient stated he lives with his , Nevin, . Nevin will provide transportation for patient after discharge. Patient states he has a walker, cane, wheelchair, bedside commode and no stairs. IMM also signed, placed in chart and copy provided to patient. CM will continue to follow. DCP REVIEW SUMMARY ANTICIPATED D/C DATE: 02/09/2021 EXPECTED LOS : 1 CASE STATUS: DCP Complete INITIAL REVIEW: 02/08/2021 INITIAL REVIEWER: Marlene Rodriguez FINAL DISCHARGE DISPOSITION: : FINAL REVIEWER: FINAL REVIEW DATE: DCP Focus Questions & Answers DCP Screen QUESTION: ANSWER High Risk Factors: : None Walking limitation: Patient stated self rated walking limitation present? : No Age: : 81 + Prior living environment: : Lives with others Disability ranking: : Grade 2: Slight disability DCP Evaluation QUESTION: ANSWER Patient's ability to cope with chronic illness : d. No chronic illness Would patient like to participate in any Care Coordination programs (if applicable): : Not applicable Mental health screen: : No mental health history DCP Re-evaluation QUESTION: ANSWER Would patient like to participate in any Care Coordination programs (if applicable): : Not applicable PATIENT: SHERWIN PETERSON ENCOUNTER: [id number] MEDICAL RECORD#: [id number] ADMISSION DATE: 02/08/2021 DISCHARGE DATE: 02/09/2021 ATTENDING MD: MARCK SIERRA : AGE: 85 MARITAL STATUS: M DC PLAN ID: [id number] FACILITY: [facility] PRINTED ON: 02/11/21 15:31 CT All edits/amendments must be made on the electronic document DICTATION DATE: 02/11/21 153 BALLISTIC EXPERT: MARLON 02/11/21 1531 RPT#: [id number] DC DATE:02/09/21 STATUS: DIS IN [facility] [address] [place] [address] END OF REPORT
== END 2021-02-09 14:42 | disposition home health service (06) | DRG 175 ==
LOC: D.ER 15:12 → D.CVICU 15:43
PROVIDERS: Family Medicine; Thoracic Surgery (Cardiothoracic Vascular Surgery); ADMIT Family Medicine; ATTEND Family Medicine
DX: I26.99 Other pulmonary embolism without acute cor pulmonale (principal); J18.9 Pneumonia, unspecified organism; J44.0 Chronic obstructive pulmonary disease with (acute) lower respiratory infection; J98.11 Atelectasis; I71.4 Abdominal aortic aneurysm, without rupture; I25.10 Atherosclerotic heart disease of native coronary artery without angina pectoris; I50.9 Heart failure, unspecified; I73.9 Peripheral vascular disease, unspecified; K21.9 Gastro-esophageal reflux disease without esophagitis; D64.9 Anemia, unspecified; E78.5 Hyperlipidemia, unspecified; N40.0 Benign prostatic hyperplasia without lower urinary tract symptoms; F32.9 Major depressive disorder, single episode, unspecified; G62.9 Polyneuropathy, unspecified; Z87.01 Personal history of pneumonia (recurrent); Z85.46 Personal history of malignant neoplasm of prostate